=== PATIENT | female | born 1985 | race Caucasian/White ===

== ENCOUNTER 2020-05-02 21:19 | Inpatient (IN) | payer MEDICARE, MEDICAID ==
[~2020-05-02] VITALS: Ht 177.8 cm; Wt 101.9 kg
[2020-05-02] MEDS ORDERED: acetaminophen 325mg tablet PO PRN (23:50)
[2020-05-02] MEDS ORDERED: loperamide 2mg capsule PO PRN (23:50)
[2020-05-02] MEDS ORDERED: mag hydrox/Alum hydrox/simeth 30ml oral suspension PO PRN (23:50)
[2020-05-03] MEDS ORDERED: ASPI-10 PO (00:19)
[2020-05-03] MEDS ORDERED: HYDR12.55 PO (00:19)
[2020-05-03] MEDS ORDERED: [UNRECOGNIZED DRUG - CODE] PO (00:19)
[2020-05-03] MEDS ORDERED: OLAN10TA3 PO (00:19)
[2020-05-03] MEDS ORDERED: GABA600T13 PO (00:19)
[2020-05-03] MEDS ORDERED: LITH450T2 PO (00:19)
[2020-05-03] MEDS ORDERED: TRAM50TA2 PO (00:19)
[2020-05-03] MEDS: traMADol 50MG tablet PO SCH ×2 (00:55→20:18)
[2020-05-03] MEDS: gabapentin 300mg capsule PO SCH ×4 (00:55→20:19)
[2020-05-03] MEDS: lithium carbonate 450mg CR tablet PO SCH ×2 (00:55→20:18)
[2020-05-03] MEDS: olanzapine 10mg tablet PO SCH ×2 (00:55→20:18)
[2020-05-03] MEDS: NICOTINE POLACRILEX 2 MG LOZENGE BC PRN (01:27)
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
[2020-05-03 07:21] LABS: HEMOGLOBIN A1C 4.9 % (4.5-6.2)
[2020-05-03 07:30] LABS: CHOL/HDL RATIO 3.4 (0.00-4.99); CHOLESTEROL 169 MG/DL (0-200); HDL CHOLESTEROL 49 MG/DL (35-60); LDL CHOLESTEROL 93 MG/DL (50-100); TRIGLYCERIDES 125 MG/DL (20-135)
[2020-05-03] MEDS: LORazepam 1 MG tablet PO PRN (07:31)
[2020-05-03] MEDS: HYDROchlorothiazide 12.5mg capsule PO SCH (07:31)
[2020-05-03] MEDS: aspirin 325mg tablet PO SCH (07:31)
[2020-05-03] MEDS: ibuprofen 200mg tablet PO PRN (07:32)
[2020-05-03 07:43] VITALS: BP 147/81
[2020-05-03] MEDS ORDERED: tizanidine 4mg tablet PO ONE (13:10)
[2020-05-03] MEDS ORDERED: LORazepam 1 MG tablet PO ONE (13:10)
[2020-05-03] MEDS: traMADol 50MG tablet PO PRN (13:23)
[2020-05-03 16:00] VITALS: BP 121/70
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
[2020-05-04] MEDS: gabapentin 300mg capsule PO SCH ×3 (07:28→20:31)
[2020-05-04] MEDS: HYDROchlorothiazide 12.5mg capsule PO SCH (07:28)
[2020-05-04] MEDS: aspirin 325mg tablet PO SCH (07:28)
[2020-05-04 08:00] VITALS: BP 164/72
[2020-05-04] MEDS: LORazepam 1 MG tablet PO PRN ×2 (13:01→21:18)
[2020-05-04] MEDS: traMADol 50MG tablet PO PRN (13:02)
[2020-05-04] MEDS: ibuprofen 200mg tablet PO PRN ×2 (13:07→21:21)
--- NOTE | 2020-05-04 16:13 | NUR ---
[facility] Called [facility] (ph# [phone]) to inquire about discharge plan and if they are considering conservatorship. Left message requesting a call back. Was informed someone will return inspector automatic typewriter's call on Thursday. FRANCK Matias
--- NOTE | 2020-05-04 16:31 | NUR ---
Tx History from Clinical Reimbursement Specialist Blaise ([facility]) called to provide information. Ph# [phone]. Was stable on Zyprexa and Clozaril. She has stopped both meds due to side effects. She was stable for 3 years on Clozaril. She had a bad reaction to Invega in the past. He reported Nuno can be very high functioning and was working, manages her own money, has a car, does have a degree, and has lost her apartment since this hospital stay. Blaise reported Nuno cannot go to her parents house per her parents, they do not feel she is safe in the community and needs to be conserved again. FRANCK Matias
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
[2020-05-04 19:53] VITALS: BP 130/69
[2020-05-04] MEDS: lithium carbonate 450mg CR tablet PO SCH (20:32)
[2020-05-04] MEDS: olanzapine 10mg tablet PO SCH (20:32)
[2020-05-04] MEDS: traMADol 50MG tablet PO SCH (20:32)
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
[2020-05-05 08:00] VITALS: BP 128/86
[2020-05-05] MEDS: gabapentin 300mg capsule PO SCH ×3 (08:17→20:08)
[2020-05-05] MEDS: aspirin 325mg tablet PO SCH (08:17)
[2020-05-05] MEDS: HYDROchlorothiazide 12.5mg capsule PO SCH (08:18)
[2020-05-05] MEDS: traMADol 50MG tablet PO PRN ×3 (08:18→20:11)
[2020-05-05] MEDS: LORazepam 1 MG tablet PO PRN ×3 (08:32→22:48)
[2020-05-05] MEDS: tizanidine 4mg tablet PO PRN ×3 (10:40→22:48)
--- NOTE | 2020-05-05 17:01 | NUR ---
Nursing Progress Note: Legal hold: 5250 Client on voluntary/involuntary status for GD/DTS Report received from nurse with use of SBAR: FABRIZIO Greene Why are they here: [facility] she arrived on a stretcher in restraints. She sustained major multiple fractures including spinal fractures, rib fractures, manubrium, sacral, pelvic, and R femur fractures, a pneumothorax and possible right peroneal nerve palsy after attempting suicide by jumping off a freeway overpass in February. After being in the hospital and going to a rehabilitation facility she AMA'd and wheeled herself out into the middle of a road. She is NWB RLE and WBAT LLE, she is supposed to wear a right lower leg splint at night. Pt's Hx includes hypertension, lupus, schizoaffective disorder, and autism. Assessment What has happened this shift: Received pt. sleeping in bed at the beginning of the shift, she remains on LOS r/t fall precautions. Pt. was able to independently transfer to W/C and attend breakfast in the Group Room, and was compliant with physical/weight bearing limitations to her lower extremities. However, following breakfast pt. c/o increased pain in her back and rt. leg, PRN Tramadol administered with some effectiveness, but pt. continued to c/o muscle spasms. Obtained an order for Zanaflex 4mg TID, administered with effectiveness. 1:1 completed at bedside, pt. greets this instructional writer appropriately and is compliant with medications, however continues to refuse physical assessment to be completed. Pt. is guarded during mental health assessment, and denies any S/I, H/I, or A/V/DARLING, however she presents with internal preoccupation AEB distraction and hesitation in response to questions. Pt. also appears to be minimizing any depression or anxiety, and becomes tearful when questioned by this instructional writer regarding her S/A, states, "I don't want to talk about it!" PRN Ativan administered with effectiveness. Later, Tech sitting with pt. overhears her talking aloud to herself, stating, "If they keep me on a hold, I'm going to kill myself." PA Kee notified and will continue to monitor. At approximately 1630, pt. presented with 5250 hold by staff. She becomes agitated and becomes verbally abusive towards staff, yells out, "Fuck you all! You're holding me here against my rights!" Pt. refused to have 5250 read to her or to sign it. She then began yelling down the hallway demanding to know when her hearing would be. Staff educated her that it would be on Thursday and pt. reported understanding. PRN Ativan and Zanaflex administered upon request and pt. was able to be redirected. S/I, H/I: Denies A/VH: Denies, however presents with internal preoccupation AEB distraction and hesitation in response to questions Sleep: Sleep hours are 4.5, pt. naps intermittently throughout the shift ADL's: Pt. is on LOS for fall precautions and uses a FWW and W/C, she continues to be NWB to RLE and WBAT to LLE Group attendance: No Were meds taken: Yes Any med S/E: None Mental Status Exam Appearance: Hair disheveled r/t laying in bed, however appropriately dressed Eye contact: Fair Behavior: Cooperative/RTC, fatigued, anxious, guarded, withdrawn, and agitated/tearful at times Speech: WNL, becomes loud and intense when agitated Mood: Guarded and appears depressed Affect: Labile Thought process: Poverty of thought with possible A/V/DARLING Thought Content: Preoccupation with desire to discharge and delusion that she is being held here illegally Cognition: A&O X 3 (not to why here) Insight: Poor Judgment: Poor Interventions PRN's used: Ultram X2, Flexeril X2, and Ativan Therapeutic interventions: Introduced self and established rapport, maintained a safe and supportive environment, ensured contract for safety, provided clear and simple instructions, encouraged compliance with physical/weight bearing limitations, maintained LOS r/t fall precautions, and monitored behavior and need for intervention. Restraints/seclusion/emergency medication: N/A Justification of Continued Inpatient Treatment: Pt. requires interruption of current crisis, medication adjustments, and a safe and supportive environment.
[2020-05-05 20:00] VITALS: BP 117/70
[2020-05-05] MEDS: olanzapine 10mg tablet PO SCH (20:07)
[2020-05-05] MEDS: traZODone 50mg tablet PO PRN ×2 (20:08→21:03)
[2020-05-05] MEDS: lithium carbonate 450mg CR tablet PO SCH (20:08)
[2020-05-05] MEDS: ibuprofen 200mg tablet PO PRN (20:10)
--- NOTE | 2020-05-06 01:34 | NUR ---
Nursing Progress Note: Legal hold: 5250 Client on involuntary status for GD/DTS. Report received from nurse Jef EID with use of SBAR. Why are they here: [facility] she arrived on a stretcher in restraints on 05/02/20 at 2320. 2 RN skin check and completed, pictures in chart. She sustained major multiple fractures including spinal fractures, rib fractures, manubrum, sacral, pelvic, and R femur fractures, a pneumothorax and possible right peroneal nerve palsy after attempting suicide by jumping off a freeway overpass in February. After being in the hospital and going to a rehabilitation facility she AMA'd and wheeled herself out into the middle of a road. She is NWB RLE and WBAT LLE, she is supposed to wear a right lower leg splint at night. Pt's Hx includes hypertension, lupus, schizoaffective disorder, and autism. Assessment What has happened this shift: Pt isolated to room for entire shift. She remains on LOS due to injuries; staff reinforce non-weight bearing orders and transfer assistance; pt is resistive and angry to this oversight but is compliant with orders. Pt is medication compliant, but asks for more pain medication (various types) as she is still experiencing pain with current prescriptions. Her Tramadol was increased to 100mg and Zanaflex was added to her regimen this evening. She is initially polite when approached, but becomes agitated and remains labile when needs are not immediately met when she demands them. She is verbally abusive to staff, often yelling obscenities like "dipshits". Pt is cooperative with vitals but refuses both the mental and physical assessments, yelling at this RN to "get out of my room!" unless administering medications or bringing pt a snack. Pt continues to minimize the actions leading up to her admission, stating she does not need to be here, it is illegal, and she was admitted by accident. S/I, H/I: Refuses to answer A/VH: Refuses to answer Sleep: see sleep assessment ADL's: Pt resistive to assistance but compliant with weight bearing orders Group attendance: N/A Were meds taken: Yes Any med S/E: None noted nor reported Mental Status Exam Appearance: Disheveled in personal clothing and unit pants and nonskid socks. Pt needs a shower. Eye contact: Poor Behavior: Demanding, accusatory, hostile and verbally abusive to staff, noncompliant with asking/waiting for assistance and weight bearing status, isolates to room Speech: Clear, loud Mood: Labile, pt presents as primarily agitated Affect: Blunted Thought process: Perseverative Thought Content: Wants to be left alone, wants more meds, wants to be discharged Cognition: A/Ox3, off for circumstance Insight: Poor Judgment: Poor Interventions PRN's used: Motrin 600 mg, Trazodone 100mg, Ativan 1mg, Zanaflex 4mg Therapeutic interventions: 1:1 assessment, attempted to establish rapport, therapeutic communication, active listening, medication administration/education/monitoring, behavior monitoring and intervention as needed; reality orientation, limit setting, redirection, verbal de-escalation, further fall preventions, line of sight level of observation. Restraints/seclusion/emergency medication: N/A Justification of Continued Inpatient Treatment: Pt is s/p a very serious suicide attempt resulting in major injury with several fractures, she is verbally aggressive and noncompliant with care, she needs medication adjustment and monitoring in a safe and therapeutic environment until stable. Pt remains GD and DTS.
[2020-05-06] MEDS: tizanidine 4mg tablet PO PRN ×3 (07:46→23:26)
[2020-05-06] MEDS: traMADol 50MG tablet PO PRN (07:47)
[2020-05-06] MEDS: gabapentin 300mg capsule PO SCH ×3 (07:48→20:00)
[2020-05-06] MEDS: HYDROchlorothiazide 12.5mg capsule PO SCH (07:48)
[2020-05-06] MEDS: LORazepam 1 MG tablet PO PRN ×3 (07:48→23:26)
[2020-05-06] MEDS: aspirin 325mg tablet PO SCH (07:48)
[2020-05-06 08:00] VITALS: BP 111/62
[2020-05-06] MEDS: ibuprofen 200mg tablet PO PRN ×2 (09:12→20:00)
[2020-05-06] MEDS: ondansetron 4mg rapidly disintigrating tab PO PRN (09:13)
[2020-05-06] MEDS: magnesium hydroxide 30ml (MOM) UD suspension PO PRN (09:56)
[2020-05-06] MEDS: HYDROcodone/acetaminophen 10/325mg tab PO PRN ×2 (13:10→20:02)
--- NOTE | 2020-05-06 17:51 | NUR ---
Nursing Progress Note: Legal hold: 5250 Client on voluntary/involuntary status for GD/DTS Report received from nurse with use of SBAR: FABRIZIO Greene Why are they here: [facility] she arrived on a stretcher in restraints. She sustained major multiple fractures including spinal fractures, rib fractures, manubrium, sacral, pelvic, and R femur fractures, a pneumothorax and possible right peroneal nerve palsy after attempting suicide by jumping off a freeway overpass in February. After being in the hospital and going to a rehabilitation facility she AMA'd and wheeled herself out into the middle of a road. She is NWB RLE and WBAT LLE, she is supposed to wear a right lower leg splint at night. Pt's Hx includes hypertension, lupus, schizoaffective disorder, and autism. Assessment What has happened this shift: Patient was asleep at change of shift and up for breakfast. Patient was pleasant most of the day. Patient has a lot of pain and AARON Rojas changed her Tramadol to [place] 10/ Q 6 hours PRN. Patient stated it worked better than the Tramadol. Patient denies suicidal/homicidal ideation. Patient states she is depressed because she is here and because she is debilitated with pain. Patient talks to herself and appears to be responding to internal stimuli most of her waking hours. RN asked patient is she hears voices. Patient thought for about 10 seconds and then says no. RN asked "are you sure because you had to think about it for a while before you answered. Patient again said no she doesn't hear voices. Bob believes patient is afraid of getting conserved. Patient allowed to stay in her room. She is more agreeable and less agitated. Patient able to get up and go to BR but used the walker and not the wheelchair. In early evening the sitter was telling her to sit up a little bit because she was going to bring her her dinner. Patient got upset and stated "don't talk to me or tell me what to do. You are not a nurse." Patient eventually calmed down. S/I, H/I: Denies A/VH: Denies, but appears to be responding to internal stimuli. Sleep: Several naps throughout the day. ADL's: Pt. is on LOS for fall precautions and uses a FWW and W/C, she continues to be NWB to RLE. Group attendance: No Were meds taken: Yes Any med S/E: None Mental Status Exam Appearance: Hair disheveled r/t laying in bed, however appropriately dressed Eye contact: Good Behavior: Cooperative and agitated at times. Speech: Normal rate and rhythm Mood: Guarded and appears depressed Affect: Labile Thought process: Poverty of thought with possible A/V/DARLING Thought Content: Preoccupation with desire to discharge and delusion that she is being held here illegally Cognition: A&O X 3 (not to why here) Insight: Poor Judgment: Poor Interventions PRN's used: Ultram x 1, [place] x 1, Ativan x 2, Zanaflex x 2, Therapeutic interventions: Introduced self and established rapport, maintained a safe and supportive environment, ensured contract for safety, provided clear and simple instructions, encouraged compliance with physical/weight bearing limitations, maintained LOS r/t fall precautions, and monitored behavior and need for intervention. Restraints/seclusion/emergency medication: N/A Justification of Continued Inpatient Treatment: Pt. requires interruption of current crisis, medication adjustments, and a safe and supportive environment.
[2020-05-06 20:00] VITALS: BP 122/70
[2020-05-06] MEDS: lithium carbonate 450mg CR tablet PO SCH (20:00)
[2020-05-06] MEDS: docusate sod 100mg capsule PO SCH (20:00)
[2020-05-06] MEDS: traZODone 50mg tablet PO PRN (20:01)
[2020-05-06] MEDS: olanzapine 10mg tablet PO SCH (20:02)
[2020-05-06 22:06] VITALS: BP 122/70
--- NOTE | 2020-05-07 02:15 | NUR ---
Nursing Progress Note: Legal hold: 5250 Client on involuntary status for GD/DTS. Report received from nurse Jef EID with use of SBAR. Why are they here: [facility] she arrived on a stretcher in restraints on 05/02/20 at 2320. 2 RN skin check and completed, pictures in chart. She sustained major multiple fractures including spinal fractures, rib fractures, manubrum, sacral, pelvic, and R femur fractures, a pneumothorax and possible right peroneal nerve palsy after attempting suicide by jumping off a freeway overpass in February. After being in the hospital and going to a rehabilitation facility she AMA'd and wheeled herself out into the middle of a road. She is NWB RLE and WBAT LLE, she is supposed to wear a right lower leg splint at night. Pt's Hx includes hypertension, lupus, schizoaffective disorder, and autism. Assessment What has happened this shift: Pt isolated to room for entire shift. She remains on LOS due to injuries; staff reinforce non-weight bearing orders and transfer assistance; pt is resistive and angry to this oversight but is compliant with orders. Pt is medication compliant, and happy with [place] as it is providing better relief, but continues to request "Tenex for the pain, too. It should be in there." This RN explains to pt she will need to discuss with the MD as there is not a current order. Pt is calmer and does not get angry in response to this statement. No yelling outbursts this evening. Pt states she is bored and would enjoy Sodoku; this RN printed patient some puzzles to work on. Pt is cooperative with vitals but continues to refuse most of the mental and physical assessments. She promptly tells this RN to "go away" once the conversation steers in a direction she does not want to discuss. Pt continues to minimize the actions leading up to her admission, stating she does not need to be here. S/I, H/I: Denies A/VH: Denies Sleep: see sleep assessment ADL's: Pt resistive to assistance but compliant with weight bearing orders Group attendance: N/A Were meds taken: Yes Any med S/E: None noted nor reported Mental Status Exam Appearance: Disheveled in personal clothing and unit pants and nonskid socks. Pt needs a shower. Eye contact: Poor Behavior: isolated to room, noncompliant with asking/waiting for assistance and weight bearing status, isolates to room Speech: Clear, loud Mood: Labile Affect: Blunted Thought process: Perseverative Thought Content: Wants to be left alone, wants tenex, wants to be discharged Cognition: A/Ox3, off for circumstance Insight: Poor Judgment: Poor Interventions PRN's used: Motrin 600 mg, Trazodone 100mg, Ativan 1mg, Zanaflex 4mg, [place] 10mg Therapeutic interventions: 1:1 assessment, attempted to establish rapport, therapeutic communication, active listening, medication administration/education/monitoring, behavior monitoring and intervention as needed; reality orientation, limit setting, redirection, verbal de-escalation, further fall preventions, line of sight level of observation. Restraints/seclusion/emergency medication: N/A Justification of Continued Inpatient Treatment: Pt is s/p a very serious suicide attempt resulting in major injury with several fractures, she is verbally aggressive and noncompliant with care, she needs medication adjustment and monitoring in a safe and therapeutic environment until stable. Pt remains GD and DTS.
[2020-05-07] MEDS: gabapentin 300mg capsule PO SCH ×3 (07:22→20:07)
[2020-05-07] MEDS: aspirin 325mg tablet PO SCH (07:22)
[2020-05-07] MEDS: OLANZAPINE 5 MG TABLET PO SCH (07:22)
[2020-05-07] MEDS: docusate sod 100mg capsule PO SCH ×2 (07:22→20:06)
[2020-05-07] MEDS: HYDROchlorothiazide 12.5mg capsule PO SCH (07:22)
[2020-05-07] MEDS: HYDROcodone/acetaminophen 10/325mg tab PO PRN ×3 (07:23→21:55)
[2020-05-07 08:00] VITALS: BP 134/91
[2020-05-07] MEDS: tizanidine 4mg tablet PO PRN ×2 (09:02→15:19)
[2020-05-07] MEDS: LORazepam 1 MG tablet PO PRN ×3 (09:02→21:55)
--- NOTE | 2020-05-07 15:17 | NUR ---
Spoke to [facility] regarding d/c plan. She had Nuno's case management manager, Blaise ([phone]# [phone]), call securities underwriter. He reported while at [facility], Nuno had mentioned she did not like it there and wanted to go to a rehab in [place]. Blaise suggested [facility] as another option upon d/c. Informed him that given her current medical issues she likely would not be able to go to [facility] and he agreed. FRANCK Matias
[2020-05-07] MEDS: ibuprofen 200mg tablet PO PRN (15:32)
[2020-05-07] MEDS: acetaminophen 325mg tablet PO PRN (15:34)
--- NOTE | 2020-05-07 15:51 | NUR ---
DISCHARGE PLANNING Nuno reported she wants out of here. She reported she plans on going [facility]. Informed Nuno that she cannot go to [facility] in her current medical state (wheelchair). She reported she had spoken to [facility] and she can go there and called rewriter a liar.Called [facility] and they confirmed that Nuno needs to be ambulatory to be able to go to [facility]. Spoke to her correctional case manager, Blaise, again and he stated Nuno is likely delusional and should not be relied upon to make her own discharge plans at this time. FRANCK Matias
--- NOTE | 2020-05-07 16:12 | NUR ---
Ortho information: Contacted and left message for Shanika Steen NP. We have the information she requested for weight bearing in her chart highlighted and pt has a brace in her locker. This should be the information needed to start physical therapy.
--- NOTE | 2020-05-07 17:12 | NUR ---
Initial: Pt admit on 5150 DX schizophrenia and SI hx homeless w/ R leg non-weight bearing and CVA per EMR. A1C 4.9 and pt placed on carb controlled diet PO 75-100% avg meals. GURINDER d/w RN regarding liberalization to regular diet given A1C and no hx DM. LBM 05/05. No nutrition concerns at this time. Rec: 1. liberalize to regular diet 2. routine bowel care 3. wt per rx Addendum: 05/07/20 at [address] Amended: Links added.
--- NOTE | 2020-05-07 17:37 | NUR ---
Nursing Progress Note: Legal hold: 5250 Client on voluntary/involuntary status for GD/DTS Report received from nurse with use of SBAR: FARBIZIO Liz Why are they here: Pt was a direct admit from [facility] she arrived on a stretcher in restraints. She sustained major multiple fractures including spinal fractures, rib fractures, manubrium, sacral, pelvic, and R femur fractures, a pneumothorax and possible right peroneal nerve palsy after attempting suicide by jumping off a freeway overpass in February. After being in the hospital and going to a rehabilitation facility she AMA'd and wheeled herself out into the middle of a road. She is NWB RLE and WBAT LLE, she is supposed to wear a right lower leg splint at night. Pt's Hx includes hypertension, lupus, schizoaffective disorder, and autism. Assessment What has happened this shift: Received pt. sleeping in bed at the beginning of the shift, she remains on LOS r/t fall precautions. Pt. was again able to independently transfer to W/C and attend breakfast in the Group Room, and remains compliant with physical/weight bearing limitations to her lower extremities. 1:1 completed at bedside, pt. greets this race and sports book writer appropriately and is compliant with medications and physical assessment. She remains guarded and continues to deny all MH s/s, however presents with internal preoccupation AEB distraction, hesitation in response to questions, and is observed to be talking aloud to herself throughout the shift. Pt. makes frequent delusional statements during the shift, states, "The finishing and shipping supervisor that brought me here were jerks, they were supposed to take me to [facility]. I am supposed to be on a medical floor." Pt. does request PRN Ativan for anxiety X2 during the shift, administered with effectiveness. Later in the afternoon after her court hearing which she walked out on, pt. wheeled herself to the nurse's station and began to verbally abuse the CRN. Pt. yells out, "He is the fucking asshole who is keeping me here illegally! I recognize him, I knew him before I came here!" Pt. was unable to be redirected by staff and had to be escorted back to her room. There she proceeded to stare out the window and talk aloud to herself. Pt. continue to report pain in lower right leg, PRN [place] and Zanaflex provided with effectiveness. S/I, H/I: Denies A/VH: Denies, however presents with internal preoccupation AEB distraction, hesitation in response to questions, and is observed to be talking aloud to herself Sleep: Sleep hours are 8.5, pt. naps intermittently throughout the shift ADL's: Pt. is on LOS for fall precautions and uses a FWW and W/C, she continues to be NWB to RLE and WBAT to LLE Group attendance: No Were meds taken: Yes Any med S/E: None Mental Status Exam Appearance: Hair disheveled r/t laying in bed, however appropriately dressed Eye contact: Fair Behavior: Cooperative, fatigued, restless, agitated at times, guarded, and withdrawn Speech: WNL, becomes loud and intense when agitated Mood: Guarded, restless, and agitated at times Affect: Labile Thought process: Poverty of thought with some disorganization Thought Content: Preoccupation with desire to discharge and delusion that she is being held here illegally, also ongoing internal preoccupation Cognition: A&O X 3 (not to why here) Insight: Poor Judgment: Poor Interventions PRN's used: [place] X2, Flexeril X2, and Ativan Therapeutic interventions: Maintained a safe and supportive environment, ensured contract for safety, provided clear and simple instructions, encouraged compliance with physical/weight bearing limitations, maintained LOS r/t fall precautions, provided redirection as needed, and monitored behavior and need for intervention. Restraints/seclusion/emergency medication: N/A Justification of Continued Inpatient Treatment: Pt. requires interruption of current crisis, medication adjustments, and a safe and supportive environment. Addendum: 05/07/20 at 1802 by Shefali Paul RN Pt's diet changed back to regular per recommendation from dietary, HBA1C is 4.9
[2020-05-07] MEDS: ondansetron 4mg rapidly disintigrating tab PO PRN (19:20)
[2020-05-07 19:49] VITALS: BP 126/54
[2020-05-07] MEDS: lithium carbonate 450mg CR tablet PO SCH (20:06)
[2020-05-07] MEDS: traZODone 50mg tablet PO PRN ×2 (20:06→21:55)
[2020-05-07] MEDS: olanzapine 10mg tablet PO SCH (20:06)
--- NOTE | 2020-05-08 01:58 | NUR ---
Nursing Progress Note: Legal hold: 5250 Client on voluntary/involuntary status for GD/DTS Report received from nurse with use of SBAR: Jef DINH Why are they here: [facility] she arrived on a stretcher in restraints. She sustained major multiple fractures including spinal fractures, rib fractures, manubrium, sacral, pelvic, and R femur fractures, a pneumothorax and possible right peroneal nerve palsy after attempting suicide by jumping off a freeway overpass in February. After being in the hospital and going to a rehabilitation facility she AMA'd and wheeled herself out into the middle of a road. She is NWB RLE and WBAT LLE, she is supposed to wear a right lower leg splint at night. Pt's Hx includes hypertension, lupus, schizoaffective disorder, and autism. Assessment What has happened this shift: Pt in bed at the beginning of the shift, she remains on LOS r/t fall precautions. Pt immediately at shift change requested all her PRNs but it was too soon. Given [place] Trazodone and Ativan at HS. Pt denied A/VH but often yells out in what appears to be responses to internal stimuli. Her behavior rapidly changes from impatient and at times verbally abusive to verbalizing gratitude for care. Pt says it is illegal for her to be held here that she needs to be released. When questioned about where she will go at discharge pt says she has several places she could go but declines to elaborate. Pt declined to come to Group room for snack. S/I, H/I: Denies A/VH: Denies, however presents with internal preoccupation AEB distraction, hesitation in response to questions, and is observed to be talking aloud to herself Sleep: Sleep hours are 8.5, pt. naps intermittently throughout the shift ADL's: Pt. is on LOS for fall precautions and uses a FWW and W/C, she continues to be NWB to RLE and WBAT to LLE Group attendance: No Were meds taken: Yes Any med S/E: None Mental Status Exam Appearance: appropriately dressed Eye contact: Fair Behavior: Agitated at times, guarded, and withdrawn Cooperative with medications Speech: WNL, yells out at times Mood: Guarded, restless, and agitated at times Affect: Labile Thought process: Poverty of thought with some disorganization Thought Content: Preoccupation with desire to discharge and delusion that she is being held here illegally, also ongoing internal preoccupation Cognition: A&O X 3 (not to why here) Insight: Poor Judgment: Poor Interventions PRN's used: [place] Trazodone and Ativan Therapeutic interventions: Maintained a safe and supportive environment, ensured contract for safety, provided clear and simple instructions, encouraged compliance with physical/weight bearing limitations, maintained LOS r/t fall precautions, provided redirection as needed, and monitored behavior and need for intervention. Restraints/seclusion/emergency medication: N/A Justification of Continued Inpatient Treatment: Pt. requires interruption of current crisis, medication adjustments, and a safe and supportive environment.
[2020-05-08] MEDS: LORazepam 1 MG tablet PO PRN ×3 (06:45→20:26)
[2020-05-08] MEDS: HYDROcodone/acetaminophen 10/325mg tab PO PRN ×3 (06:47→20:34)
[2020-05-08 07:00] VITALS: BP 133/73
[2020-05-08] MEDS: HYDROchlorothiazide 12.5mg capsule PO SCH (08:18)
[2020-05-08] MEDS: aspirin 325mg tablet PO SCH (08:18)
[2020-05-08] MEDS: docusate sod 100mg capsule PO SCH ×2 (08:18→20:26)
[2020-05-08] MEDS: OLANZAPINE 5 MG TABLET PO SCH (08:18)
[2020-05-08] MEDS: tizanidine 4mg tablet PO PRN ×3 (08:18→22:17)
[2020-05-08] MEDS: gabapentin 300mg capsule PO SCH ×3 (08:19→20:26)
[2020-05-08] MEDS: ibuprofen 200mg tablet PO PRN ×2 (12:02→17:25)
[2020-05-08] MEDS: ondansetron 4mg rapidly disintigrating tab PO PRN (17:28)
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
[2020-05-08] MEDS: traZODone 50mg tablet PO PRN (20:25)
[2020-05-08] MEDS: olanzapine 10mg tablet PO SCH (20:25)
[2020-05-08] MEDS: lithium carbonate 450mg CR tablet PO SCH (20:25)
[2020-05-08] MEDS: acetaminophen 325mg tablet PO PRN (22:22)
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
[2020-05-09] MEDS: tizanidine 4mg tablet PO PRN ×3 (04:02→19:00)
[2020-05-09] MEDS: LORazepam 1 MG tablet PO PRN ×2 (04:02→19:00)
[2020-05-09] MEDS: HYDROcodone/acetaminophen 10/325mg tab PO PRN ×3 (04:09→19:00)
[2020-05-09 08:00] VITALS: BP 113/51
[2020-05-09] MEDS: gabapentin 300mg capsule PO SCH ×3 (08:23→20:11)
[2020-05-09] MEDS: ibuprofen 200mg tablet PO PRN (08:23)
[2020-05-09] MEDS: OLANZAPINE 5 MG TABLET PO SCH (08:23)
[2020-05-09] MEDS: HYDROchlorothiazide 12.5mg capsule PO SCH (08:24)
[2020-05-09] MEDS: aspirin 325mg tablet PO SCH (08:24)
[2020-05-09] MEDS: acetaminophen 325mg tablet PO PRN (08:24)
[2020-05-09] MEDS: docusate sod 100mg capsule PO SCH ×2 (08:24→19:02)
--- NOTE | 2020-05-09 13:11 | NUR ---
RN note with collaboration with PT: Patient cussing and crying because she wants to leave. P.T., Gerald came to see patient. Patient was immediately calm when PT came to see her. When they told her she cannot use the walker because she is not supposed to bear weight patient got angry and cussing. Patient would not listen to PT. RN took patient's walker away because instead of using it to help herself up, she was walking to the BR with it. RN advised patient that when she needs to go to the bathroom she will need to ask for help and we will assist her into her w/c. Patient screaming at RN and telling RN that "your are fucking too fat to help me! I'll just pee in my bed and you can fucking clean me up. You are such an fucking idiot!" RN spoke to PT on the phone again and clarified order. Patient to pivot to w/c to go to BR. Patient also needs to use the brace at night and patient possibly has some nerve damage.
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
[2020-05-09 19:50] VITALS: BP 146/65
[2020-05-09] MEDS: olanzapine 10mg tablet PO SCH (20:11)
[2020-05-09] MEDS: traZODone 50mg tablet PO PRN ×2 (20:12→20:57)
[2020-05-09] MEDS: lithium carbonate 450mg CR tablet PO SCH (20:12)
[2020-05-09] MEDS: ondansetron 4mg rapidly disintigrating tab PO PRN (22:24)
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
[2020-05-10] MEDS: HYDROcodone/acetaminophen 10/325mg tab PO PRN ×3 (05:40→19:26)
[2020-05-10] MEDS: tizanidine 4mg tablet PO PRN ×2 (05:41→12:59)
[2020-05-10] MEDS: LORazepam 1 MG tablet PO PRN ×2 (05:41→16:29)
[2020-05-10 07:42] VITALS: BP 130/73
[2020-05-10] MEDS: docusate sod 100mg capsule PO SCH ×2 (08:27→20:16)
[2020-05-10] MEDS: HYDROchlorothiazide 12.5mg capsule PO SCH (08:28)
[2020-05-10] MEDS: gabapentin 300mg capsule PO SCH ×3 (08:28→20:16)
[2020-05-10] MEDS: aspirin 325mg tablet PO SCH (08:29)
[2020-05-10] MEDS: ibuprofen 200mg tablet PO PRN ×2 (08:29→16:31)
[2020-05-10] MEDS: OLANZAPINE 5 MG TABLET PO SCH (08:29)
[2020-05-10] MEDS: acetaminophen 325mg tablet PO PRN ×2 (08:31→16:31)
[2020-05-10] MEDS: LIDOcaine 5% patch TP SCH (10:52)
--- NOTE | 2020-05-10 16:01 | NUR ---
Nuno's step-mom, Lorena ([phone]# [phone]), called to see how Nuno is doing. She reported she spoke with Nuno and she did not sound well. Answered her questions regarding the program here. She reported she does not think Nuno can return to [facility] as she was not very cooperative there. Called Nuno's casework supervisor, Blaise, and requested he fax records regarding what medications and doses have been helpful in the past. He reported he will fax them tomorrow. FRANCK Matias
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
[2020-05-10 20:00] VITALS: BP 160/51
[2020-05-10] MEDS: olanzapine 10mg tablet PO SCH (20:16)
[2020-05-10] MEDS: lithium carbonate 450mg CR tablet PO SCH (20:16)
[2020-05-11] MEDS: tizanidine 4mg tablet PO PRN (01:56)
[2020-05-11] MEDS: HYDROcodone/acetaminophen 10/325mg tab PO PRN ×4 (01:56→20:28)
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
[2020-05-11 07:34] VITALS: BP 163/89
[2020-05-11] MEDS: docusate sod 100mg capsule PO SCH ×2 (08:00→20:29)
[2020-05-11] MEDS: aspirin 325mg tablet PO SCH (08:30)
[2020-05-11] MEDS: LIDOcaine 5% patch TP SCH (09:36)
[2020-05-11] MEDS: gabapentin 300mg capsule PO SCH ×3 (09:37→22:23)
[2020-05-11] MEDS: HYDROchlorothiazide 12.5mg capsule PO SCH (09:37)
[2020-05-11] MEDS: LORazepam 1 MG tablet PO PRN ×2 (09:37→15:53)
[2020-05-11] MEDS: OLANZAPINE 5 MG TABLET PO SCH (09:37)
--- NOTE | 2020-05-11 13:38 | NUR ---
VALENTIN FOR [facility] Nuno signed VALENTIN for [facility]. Faxed it back and requested records. FRANCK Matias
[2020-05-11] MEDS: ondansetron 4mg rapidly disintigrating tab PO PRN (15:53)
[2020-05-11] MEDS: ibuprofen 200mg tablet PO PRN (15:53)
[2020-05-11] MEDS: NICOTINE POLACRILEX 2 MG LOZENGE BC PRN ×2 (15:54→22:26)
[2020-05-11] MEDS ORDERED: sennosides/docusate sodium tablet PO PRN (16:00)
--- NOTE | 2020-05-11 16:42 | NUR ---
Nursing Progress Note: Legal hold: 5250 Client on involuntary status for GD/DTS Report received from nurse with use of SBAR: RGAINI Fuchs, CRN Why are they here: [facility] she arrived on a stretcher in restraints. She sustained major multiple fractures including spinal fractures, rib fractures, manubrium, sacral, pelvic, and R femur fractures, a pneumothorax and possible right peroneal nerve palsy after attempting suicide by jumping off a freeway overpass in February. After being in the hospital and going to a rehabilitation facility she AMA'd and wheeled herself out into the middle of a road. She is NWB RLE and WBAT LLE, she is supposed to wear a right lower leg splint at night. Pt's Hx includes hypertension, lupus, schizoaffective disorder, and autism. Assessment What has happened this shift: Patient was asleep at change of shift and awake at breakfast. She did not yell as much today as she has in the past. She was observed numerous times sitting on the side of her bed facing her bedroom windows, with no one in the room, having a conversation at times yelling at whom she was talking too. She continues to inquire about her discharge plan. S/I, H/I: Denies A/VH: Patient appears to be responding to internal stimuli. Sleep: Several naps today. ADL's: Pt. is on LOS for fall precautions and uses a FWW and W/C, she continues to be NWB to RLE and WBAT to LLE. Patient ambulates to restroom and back to bed. Group attendance: No Were meds taken: Yes Any med S/E: None Mental Status Exam Appearance: Patient wearing personal clothing; her hair is brushed and styled Eye contact: Good Behavior: Labile Speech: Pressured Mood: Some agitation in the later afternoon Affect: appears frustrated and depressed Thought process: Poverty of thought, disorganized, thought blocking. Thought Content: Preoccupation with desire to discharge and delusion that she is being held here illegally,. Cognition: A&O X 3 (not to why here) Insight: Poor Judgment: Poor Interventions PRN's used: Zanaflex X1, Tylenol and Motrin x 1, Ativn 2mg x 1 Therapeutic interventions: Provided AM assessment with therapeutic communication and active listening, maintained a safe and supportive environment, medication administration/education/monitoring, limitations, maintained LOS r/t fall precautions, provided redirection as needed, and monitored behavior and need for intervention. Restraints/seclusion/emergency medication: N/A Justification of Continued Inpatient Treatment: Pt. requires interruption of current crisis, medication adjustments, and a safe and supportive environment.
--- NOTE | 2020-05-11 18:31 | NUR ---
Received report from charge nurse.
[2020-05-11 19:47] VITALS: BP 134/75
[2020-05-11] MEDS: guanFACINE 1 mg tablet PO SCH (20:27)
[2020-05-11] MEDS: olanzapine 10mg tablet PO SCH (20:27)
[2020-05-11] MEDS: lithium carbonate 150mg capsule PO SCH (20:29)
[2020-05-12] MEDS: traZODone 50mg tablet PO PRN ×3 (00:45→20:18)
--- NOTE | 2020-05-12 02:34 | NUR ---
Nursing Progress Note: Legal hold: 5250 Client on involuntary status for GD/DTS Report received from nurse with use of SBAR: RAGINI Pickens Why are they here: Pt was a direct admit from [facility] she arrived on a stretcher in restraints. She sustained major multiple fractures including spinal fractures, rib fractures, manubrium, sacral, pelvic, and R femur fractures, a pneumothorax and possible right peroneal nerve palsy after attempting suicide by jumping off a freeway overpass in February. After being in the hospital and going to a rehabilitation facility she AMA'd and wheeled herself out into the middle of a road. She is NWB RLE and WBAT LLE, she is supposed to wear a right lower leg splint at night. Pt's Hx includes hypertension, lupus, schizoaffective disorder, and autism. Assessment What has happened this shift: Patient was asleep most of shift. She did yell out for pain medication but was polite and calm when they were brought in to her. Patient requesed snack throughout the night. Assesment was done a long with med pass and she was compliant with both. Patient did tell me that she wants to go home and when I told her that we needed to make sure that she was safe she mentioned that she thinks there are more reasons than that. S/I, H/I: Denies A/VH: Denies Sleep: Most of shift, ADL's: Pt. is on LOS for fall precautions and uses a FWW and W/C, she continues to be NWB to RLE and WBAT to LLE. Patient ambulates to restroom and back to bed. Group attendance: N/A Were meds taken: Yes Any med S/E: None Mental Status Exam Appearance: Patient wearing personal clothing; needs shower Eye contact: Good Behavior: Labile Speech: Pressured Mood: slightly agitated Affect: appears frustrated and depressed Thought process: Poverty of thought, disorganized, thought blocking, paranoid Thought Content: Preoccupation with desire to discharge Cognition: A&O X 3 (not to why here) Insight: Poor Judgment: Poor Interventions PRN's used: Trazodone, [place] Therapeutic interventions: Provided PM assessment with therapeutic communication and active listening, maintained a safe and supportive environment, medication administration/education/monitoring, limitations, maintained LOS r/t fall precautions, provided redirection as needed, and monitored behavior and need for intervention. Restraints/seclusion/emergency medication: N/A Justification of Continued Inpatient Treatment: Pt. requires interruption of current crisis, medication adjustments, and a safe and supportive environment.
[2020-05-12] MEDS: NICOTINE POLACRILEX 2 MG LOZENGE BC PRN ×4 (05:51→20:06)
[2020-05-12] MEDS: HYDROcodone/acetaminophen 10/325mg tab PO PRN (05:52)
[2020-05-12] MEDS: LORazepam 1 MG tablet PO PRN ×2 (05:52→16:25)
[2020-05-12] MEDS: magnesium hydroxide 30ml (MOM) UD suspension PO PRN ×2 (05:55→16:25)
[2020-05-12 07:33] VITALS: BP 102/58
[2020-05-12] MEDS: LIDOcaine 5% patch TP SCH (07:45)
[2020-05-12] MEDS: guanFACINE 1 mg tablet PO SCH ×2 (07:46→20:05)
[2020-05-12] MEDS: OLANZAPINE 5 MG TABLET PO SCH ×2 (07:46→21:00)
[2020-05-12] MEDS: aspirin 325mg tablet PO SCH (07:46)
[2020-05-12] MEDS: docusate sod 100mg capsule PO SCH ×2 (07:46→20:05)
[2020-05-12] MEDS: gabapentin 300mg capsule PO SCH ×3 (07:47→20:05)
--- NOTE | 2020-05-12 16:07 | NUR ---
Nursing Progress Note: Legal hold: 5250 Client on involuntary status for GD/DTS Report received from nurse with use of SBAR: RAGINI Fuchs, CRN Why are they here: [facility] she arrived on a stretcher in restraints. She sustained major multiple fractures including spinal fractures, rib fractures, manubrium, sacral, pelvic, and R femur fractures, a pneumothorax and possible right peroneal nerve palsy after attempting suicide by jumping off a freeway overpass in February. After being in the hospital and going to a rehabilitation facility she AMA'd and wheeled herself out into the middle of a road. She is NWB RLE and WBAT LLE, she is supposed to wear a right lower leg splint at night. Pt's Hx includes hypertension, lupus, schizoaffective disorder, and autism. Assessment What has happened this shift: Patient sleeping at change of shift then awake for breakfast. Again pt is observed sitting on the side of her bed having a conversation at times yelling out talking as if someone is in the room. Pt is tearful intermittently expressing her desire to return to "my facility, where I live." She slept on and off today. S/I, H/I: Denies A/VH: Patient appears to be responding to internal stimuli. Sleep: Several naps today. ADL's: Pt. is on LOS for fall precautions and uses a FWW and W/C. Group attendance: No Were Meds taken: Yes Any med S/E: None Mental Status Exam Appearance: Patient wearing personal clothing; her hair is brushed and styled Eye contact: Good Behavior: Labile Speech: Pressured Mood: Some agitation in the later afternoon Affect: frustrated and depressed Thought process: disorganized Thought Content: Preoccupation with desire to discharge and delusion that she is being held here illegally,. Cognition: A&O X 3 (not to why here) Insight: Poor Judgment: Poor Interventions PRN's used: N/A Therapeutic interventions: Provided AM assessment with therapeutic communication and active listening, maintained a safe and supportive environment, medication administration/education/monitoring, limitations, maintained LOS r/t fall precautions, provided redirection as needed, and monitored behavior and need for intervention. Restraints/seclusion/emergency medication: N/A Justification of Continued Inpatient Treatment: Pt. requires interruption of current crisis, medication adjustments, and a safe and supportive environment.
[2020-05-12] MEDS: ibuprofen 200mg tablet PO PRN (16:25)
[2020-05-12 19:00] VITALS: BP 148/88
[2020-05-12] MEDS: lithium carbonate 150mg capsule PO SCH (20:05)
[2020-05-12] MEDS: olanzapine 10mg tablet PO SCH (20:05)
[2020-05-12] MEDS: sennosides 8.6mg tablet PO PRN (20:05)
[2020-05-12] MEDS: HYDROcodone/acetaminophen 5mg/325mg tablet PO PRN (20:06)
[2020-05-12] MEDS: tizanidine 4mg tablet PO PRN (20:06)
--- NOTE | 2020-05-13 00:16 | NUR ---
Nursing Progress Note: Legal hold: 5250 Client on involuntary status for GD/DTS Report received from nurse with use of SBAR: RAGINI Pickens Why are they here: Pt [facility] she arrived on a stretcher in restraints. She sustained major multiple fractures including spinal fractures, rib fractures, manubrium, sacral, pelvic, and R femur fractures, a pneumothorax and possible right peroneal nerve palsy after attempting suicide by jumping off a freeway overpass in February. After being in the hospital and going to a rehabilitation facility she AMA'd and wheeled herself out into the middle of a road. She is NWB RLE and WBAT LLE, she is supposed to wear a right lower leg splint at night. Pt's Hx includes hypertension, lupus, schizoaffective disorder, and autism. Assessment What has happened this shift: Patient stayed in her room for the shift mechanic. Pt was cooperative and friendly during 1:1 and did not make any innapropriate outbursts at this rn. Pt continues to be demanding when she wants something, but appears to be less so than previous nights. Pt requested norco and muscle relaxer for pain and accepted all hs meds without issue. Pt continues to be on los. When asked about voices, pt denied. S/I, H/I: Denies A/VH: Denies Sleep: Most of shift, ADL's: Pt refuses assistance Group attendance: N/A Were meds taken: Yes Any med S/E: None Mental Status Exam Appearance: lying in bed, discheveled Eye contact: fair Behavior: cooperative Speech: Pressured Mood: cooperative Affect: depressed Thought process: Poverty of thought, disorganized, thought blocking Thought Content: Preoccupation with desire to discharge Cognition: A&O X 3 (not to why here) Insight: Poor Judgment: Poor Interventions PRN's used: Trazodone, [place], xanaflex Therapeutic interventions: Provided PM assessment with therapeutic communication and active listening, maintained a safe and supportive environment, medication administration/education/monitoring, limitations, maintained LOS r/t fall precautions, provided redirection as needed, and monitored behavior and need for intervention. Restraints/seclusion/emergency medication: N/A Justification of Continued Inpatient Treatment: Pt. requires interruption of current crisis, medication adjustments, and a safe and supportive environment. Addendum: 05/13/20 at 0438 by Jef Akhtar RN pt awoke requesting pain medication. when offered norco, pt said, "fuck you, I get 2 of those, why can't you fucking read." pt refused to take any meds after 2 attempts. Pt became verbally abusive. Addendum: 05/13/20 at 0531 by Jef Akhtar RN Pt again requested pain medication. Pt given norco with minimal effect, pain 12/27. Pt was then given tramadol. Pt is now resting in bed.
[2020-05-13] MEDS: HYDROcodone/acetaminophen 5mg/325mg tablet PO PRN (04:43)
[2020-05-13] MEDS: LORazepam 1 MG tablet PO PRN (04:43)
[2020-05-13] MEDS: traMADol 50MG tablet PO PRN (04:43)
[2020-05-13 07:32] VITALS: BP 125/61
[2020-05-13] MEDS ORDERED: lithium carbonate 300mg SR tablet (LithoBID) PO SCH (08:00)
[2020-05-13] MEDS: gabapentin 300mg capsule PO SCH ×3 (08:17→20:49)
[2020-05-13] MEDS: docusate sod 100mg capsule PO SCH ×2 (08:17→20:50)
[2020-05-13] MEDS: tizanidine 4mg tablet PO PRN ×2 (08:17→16:42)
[2020-05-13] MEDS: aspirin 325mg tablet PO SCH (08:18)
[2020-05-13] MEDS: OLANZAPINE 5 MG TABLET PO SCH ×2 (08:18→20:49)
[2020-05-13] MEDS: guanFACINE 1 mg tablet PO SCH ×2 (08:18→20:50)
[2020-05-13] MEDS: LIDOcaine 5% patch TP SCH (12:30)
[2020-05-13] MEDS: NICOTINE POLACRILEX 2 MG LOZENGE BC PRN ×2 (16:42→18:54)
[2020-05-13] MEDS: ibuprofen 200mg tablet PO PRN (16:43)
--- NOTE | 2020-05-13 17:20 | NUR ---
Nursing Progress Note: Legal hold: 5250 Client on involuntary status for GD/DTS Report received from nurse FABRIZIO Greene with use of SBAR Why are they here: [facility] she arrived on a stretcher in restraints. She sustained major multiple fractures including spinal fractures, rib fractures, manubrium, sacral, pelvic, and R femur fractures, a pneumothorax and possible right peroneal nerve palsy after attempting suicide by jumping off a freeway overpass in February. After being in the hospital and going to a rehabilitation facility she AMA'd and wheeled herself out into the middle of a road. She is NWB RLE and WBAT LLE, she is supposed to wear a right lower leg splint at night. Pt's Hx includes hypertension, lupus, schizoaffective disorder, and autism. Assessment What has happened this shift: Pt slept until breakfast and am med pass. She continues to push to go back to her placement of "[facility] She refused a shower. Pt gave herself a sponge bath, and changed her clothing. Her room was cleaned and sanitized due to stool all over the floor and handles of the bed etc. Sheets changed x2 today. Pt is less angry today saying "please and thank you." S/I, H/I: Denies A/VH: Patient appears to be responding to internal stimuli. Sleep: Several naps today. ADL's: Pt. is on LOS for fall precautions and uses a FWW and W/C. Group attendance: No Were Meds taken: Yes Any med S/E: None Mental Status Exam Appearance: Green scrubs Eye contact: Good Behavior: Labile Speech: clear, audible less pressured Mood: Calm Affect: depressed Thought process: disorganized Thought Content: Preoccupation with desire to discharge and delusion that she is being held here illegally,. Cognition: A&O X 3 (not to why here) Insight: Poor Judgment: Poor Interventions PRN's used: N/A Therapeutic interventions: Provided AM assessment with therapeutic communication and active listening, encouraged good hygiene and provided personal hygiene items to clean her self, maintained a safe and supportive environment, medication administration/education/monitoring, limitations, maintained LOS r/t fall precautions, provided redirection as needed, and monitored behavior and need for intervention. Restraints/seclusion/emergency medication: N/A Justification of Continued Inpatient Treatment: Pt. requires interruption of current crisis, medication adjustments, and a safe and supportive environment.
[2020-05-13 19:35] VITALS: BP 115/60
[2020-05-13] MEDS: lithium carbonate 150mg capsule PO SCH (20:49)
--- NOTE | 2020-05-14 01:43 | NUR ---
Nursing Progress Note: Legal hold: 5250 Client on involuntary status for GD/DTS Report received from nurse FABRIZIO Pickens with use of SBAR Why are they here: Pt was a [facility] she arrived on a stretcher in restraints. She sustained major multiple fractures including spinal fractures, rib fractures, manubrium, sacral, pelvic, and R femur fractures, a pneumothorax and possible right peroneal nerve palsy after attempting suicide by jumping off a freeway overpass in February. After being in the hospital and going to a rehabilitation facility she AMA'd and wheeled herself out into the middle of a road. She is NWB RLE and WBAT LLE, she is supposed to wear a right lower leg splint at night. Pt's Hx includes hypertension, lupus, schizoaffective disorder, and autism. Assessment What has happened this shift: Pt denies depression or SI. Pt pleasant and cooperative this shift. Took all meds said please and Thank you for care. Pt remains on LOS. Per sitter pt still refuses any assistance when ambulating to BR. Pt uses a walker and ambulates independently. S/I, H/I: Denies A/VH: Patient appears to be responding to internal stimuli. Sleep: Asleep ADL's: Pt. is on LOS for fall precautions and uses a FWW and W/C. Group attendance: Declined to come to group room for snack. Were Meds taken: Yes Any med S/E: None Mental Status Exam Appearance: Green scrubs Eye contact: Good Behavior: Labile Speech: clear, audible less pressured Mood: Calm Affect: depressed Thought process: disorganized Thought Content: no delusions verbalized Cognition: A&O X 3 (not to why here) Insight: Poor Judgment: Poor Interventions PRN's used: N/A Therapeutic interventions: Provided therapeutic communication and active listening, encouraged good hygiene , maintained a safe and supportive environment, medication administration/education/monitoring, limitations, maintained LOS r/t fall precautions, provided redirection as needed, and monitored behavior and need for intervention. Restraints/seclusion/emergency medication: N/A Justification of Continued Inpatient Treatment: Pt. requires interruption of current crisis, medication adjustments, and a safe and supportive environment.
[2020-05-14] MEDS: tizanidine 4mg tablet PO PRN ×2 (02:22→20:34)
[2020-05-14] MEDS: traMADol 50MG tablet PO PRN ×3 (02:23→19:54)
[2020-05-14] MEDS: NICOTINE POLACRILEX 2 MG LOZENGE BC PRN ×4 (02:23→19:39)
[2020-05-14] MEDS: LORazepam 1 MG tablet PO PRN ×2 (06:09→12:54)
[2020-05-14] MEDS: HYDROcodone/acetaminophen 5mg/325mg tablet PO PRN ×3 (06:10→20:35)
[2020-05-14] MEDS: LIDOcaine 5% patch TP SCH ×2 (07:23→08:00)
[2020-05-14] MEDS: lithium carbonate 150mg capsule PO SCH ×3 (07:23→20:34)
[2020-05-14] MEDS: ibuprofen 200mg tablet PO PRN ×2 (07:24→23:55)
[2020-05-14] MEDS: OLANZAPINE 5 MG TABLET PO SCH ×2 (07:24→20:34)
[2020-05-14] MEDS: docusate sod 100mg capsule PO SCH ×2 (07:25→20:34)
[2020-05-14] MEDS: guanFACINE 1 mg tablet PO SCH ×2 (07:25→20:32)
[2020-05-14] MEDS: gabapentin 300mg capsule PO SCH ×3 (07:25→20:33)
[2020-05-14 08:00] VITALS: BP 131/70
[2020-05-14] MEDS: aspirin 325mg tablet PO SCH (08:27)
--- NOTE | 2020-05-14 08:40 | NUR ---
Received a list of medications that Nuno has taken in the past from [facility]. It was noted that she did well on clozapine. Placed the information in her chart. FRANCK Matias
--- NOTE | 2020-05-14 15:02 | NUR ---
Nursing Progress Note: Legal hold: 5250 Client on involuntary status for GD/DTS Report received from nurse FABRIZIO Greene with use of SBAR Why are they here: [facility] she arrived on a stretcher in restraints. She sustained major multiple fractures including spinal fractures, rib fractures, manubrium, sacral, pelvic, and R femur fractures, a pneumothorax and possible right peroneal nerve palsy after attempting suicide by jumping off a freeway overpass in February. After being in the hospital and going to a rehabilitation facility she AMA'd and wheeled herself out into the middle of a road. She is NWB RLE and WBAT LLE, she is supposed to wear a right lower leg splint at night. Pt's Hx includes hypertension, lupus, schizoaffective disorder, and autism. Assessment What has happened this shift: Pt sleeps most of the shift. She is calm, cooperative and polite today. She is up for meals and addresses her own ADL's. She continues to request to leave based on getting her needs met, "in a better place that will help to take care of her." Pt is medication compliant. S/I, H/I: Denies A/VH: Patient appears to be responding to internal stimuli. Sleep: Several naps today. ADL's: Pt. is on LOS for fall precautions and uses a FWW and W/C. Group attendance: No Were Meds taken: Yes Any med S/E: None Mental Status Exam Appearance: Green scrubs Eye contact: Good Behavior: Labile Speech: clear, audible less pressured Mood: Calm Affect: depressed Thought process: disorganized Thought Content: Preoccupation with desire to discharge and delusion that she is being held here illegally,. Cognition: A&O X 3 (not to why here) Insight: Poor Judgment: Poor Interventions PRN's used: N/A Therapeutic interventions: Provided AM assessment with therapeutic communication and active listening, encouraged good hygiene and provided personal hygiene items to clean her self, maintained a safe and supportive environment, medication administration/education/monitoring, limitations, maintained LOS r/t fall precautions, provided redirection as needed, and monitored behavior and need for intervention. Restraints/seclusion/emergency medication: N/A Justification of Continued Inpatient Treatment: Pt. requires interruption of current crisis, medication adjustments, and a safe and supportive environment.
[2020-05-14 19:41] VITALS: BP_SYST 135; BP_SYST 150; BP_DIAS 63; BP_DIAS 79
[2020-05-14] MEDS: traZODone 50mg tablet PO PRN (23:55)
[2020-05-14] MEDS: sennosides 8.6mg tablet PO PRN (23:59)
--- NOTE | 2020-05-15 02:32 | NUR ---
Nursing Progress Note: Legal hold: 5250 Client on involuntary status for GD/DTS Report received from nurse FABRIZIO Pickens with use of SBAR Why are they here: Pt was a direct admit from [facility] she arrived on a stretcher in restraints. She sustained major multiple fractures including spinal fractures, rib fractures, manubrium, sacral, pelvic, and R femur fractures, a pneumothorax and possible right peroneal nerve palsy after attempting suicide by jumping off a freeway overpass in February. After being in the hospital and going to a rehabilitation facility she AMA'd and wheeled herself out into the middle of a road. She is NWB RLE and WBAT LLE, she is supposed to wear a right lower leg splint at night. Pt's Hx includes hypertension, lupus, schizoaffective disorder, and autism. Assessment What has happened this shift: Pt was demanding and impatient at times. Repeatedly asked for medications when it was to soon for them and became angry. She refused a shower. She became more pleasant later in the shift again saying please and thank you for care. Pt denies depression or SI. Pt pleasant and cooperative this shift. Took all meds. Pt remains on LOS. Per sitter pt still refuses any assistance when ambulating to BR. Pt uses a walker and ambulates independently. S/I, H/I: Denies A/VH: Patient appears to be responding to internal stimuli. Sleep: Asleep ADL's: Pt. is on LOS for fall precautions and uses a FWW and W/C. Group attendance: Declined to come to group room for snack. Were Meds taken: Yes Any med S/E: None Mental Status Exam Appearance: Green scrubs Eye contact: Good Behavior: Labile Speech: clear, audible less pressured Mood: Calm Affect: depressed Thought process: disorganized Thought Content: no delusions verbalized Cognition: A&O X 3 (not to why here) Insight: Poor Judgment: Poor Interventions PRN's used: N/A Therapeutic interventions: Provided therapeutic communication and active listening, encouraged good hygiene , maintained a safe and supportive environment, medication administration/education/monitoring, limitations, maintained LOS r/t fall precautions, provided redirection as needed, and monitored behavior and need for intervention. Restraints/seclusion/emergency medication: N/A Justification of Continued Inpatient Treatment: Pt. requires interruption of current crisis, medication adjustments, and a safe and supportive environment.
[2020-05-15] MEDS: LORazepam 1 MG tablet PO PRN ×2 (04:22→13:01)
[2020-05-15] MEDS: traMADol 50MG tablet PO PRN ×3 (04:23→20:25)
[2020-05-15 07:42] VITALS: BP 149/68
[2020-05-15] MEDS: OLANZAPINE 5 MG TABLET PO SCH ×2 (08:10→20:13)
[2020-05-15] MEDS: docusate sod 100mg capsule PO SCH ×2 (08:10→20:13)
[2020-05-15] MEDS: guanFACINE 1 mg tablet PO SCH ×2 (08:10→20:00)
[2020-05-15] MEDS: lithium carbonate 150mg capsule PO SCH ×3 (08:10→20:14)
[2020-05-15] MEDS: gabapentin 300mg capsule PO SCH ×3 (08:10→20:12)
[2020-05-15] MEDS: HYDROcodone/acetaminophen 5mg/325mg tablet PO PRN (08:18)
[2020-05-15] MEDS: aspirin 325mg tablet PO SCH (08:18)
[2020-05-15] MEDS: NICOTINE POLACRILEX 2 MG LOZENGE BC PRN ×3 (08:18→15:15)
[2020-05-15] MEDS: LIDOcaine 5% patch TP SCH (08:21)
--- NOTE | 2020-05-15 12:02 | NUR ---
Reassessment: Pt PO 75-100% avg regular meals meeting needs. LBM 05/13. No nutrition concerns at this time. Will continue to monitor. Rec: 1. continue regular diet 2. routine bowel care 3. wt per rx Addendum: 05/15/20 at [address] Amended: Links added.
--- NOTE | 2020-05-15 12:55 | NUR ---
1:1 with Nuno Reina was quite labile, laughing inappropriately, and crying at times. She was paranoid and stated [facility] is a "murder factory" and should be "condemned". She complained that her medications are not right and that she needs to be on higher doses of gabapentin and zyprexa. She asked ticket writer to tell the Dr to release her. She stated she can go to [facility] and they can take care of her psychiatrically as well as with her physical therapy. See Wheeler attempted to explain again that she cannot go to [facility] in her current physical state (in a wheelchair and non-weight bearing) and she would not hear this. She asked ticket writer to call her medical case manager, Blaise. She reported she would like to talk to him and ticket writer will provide her with his phone number. FRANCK Matias
[2020-05-15] MEDS: ibuprofen 200mg tablet PO PRN ×2 (13:02→20:15)
--- NOTE | 2020-05-15 13:54 | NUR ---
[employer] OPERATOR Called Nuno's bilingual case manager, Blaise (ph# [phone]), at her request. Gave him an update on how she is doing and her desire to go to [facility]. He reported he will give her a call this afternoon. He asked typewriter repairer NOT to give her his phone # as he does not give it out to his clients. FRANCK Matias
--- NOTE | 2020-05-15 17:20 | NUR ---
Nursing Progress Note: Legal hold: 5250 Client on involuntary status for GD/DTS Report received from nurse FABRIZIO Sol with use of SBAR Why are they here: Pt was a [facility] admit [facility] she arrived on a stretcher in restraints. She sustained major multiple fractures including spinal fractures, rib fractures, manubrium, sacral, pelvic, and R femur fractures, a pneumothorax and possible right peroneal nerve palsy after attempting suicide by jumping off a freeway overpass in February. After being in the hospital and going to a rehabilitation facility she AMA'd and wheeled herself out into the middle of a road. She is NWB RLE and WBAT LLE, she is supposed to wear a right lower leg splint at night. Pt's Hx includes hypertension, lupus, schizoaffective disorder, and autism. Assessment What has happened this shift: Patient awake for breakfast. Patient takes medications without incident. Patient intermittently napped throughout the day. Patient spoke with JANELLE Schaffer and was crying in her room regarding discharge and stating that she doesn't want to be here any longer. Patient requested prn's which were provided. Patient is medication compliant. S/I, H/I: Denies A/VH: Patient appears to be responding to internal stimuli. Sleep: 9.5 hrs NOC, napped ADL's: Pt. is on LOS for fall precautions and uses a FWW and W/C. Group attendance: No Were Meds taken: Yes Any med S/E: None Mental Status Exam Appearance: Well groomed, wearing unit attire. Eye contact: Good Behavior: Laying in bed, gets self to bathroom via walker. Speech: clear, patient yells when she wants something. Mood: Depressed. Affect: Labile. Thought process: disorganized Thought Content: Preoccupation with desire to discharge and delusion that she is being held here illegally. Cognition: A&O X 3 (not to why here) Insight: Poor Judgment: Poor Interventions PRN's used: N/A Therapeutic interventions: Provided AM assessment with therapeutic communication and active listening, encouraged good hygiene and provided personal hygiene items to clean her self, maintained a safe and supportive environment, medication administration/education/monitoring, limitations, maintained LOS r/t fall precautions, provided redirection as needed, and monitored behavior and need for intervention. Restraints/seclusion/emergency medication: N/A Justification of Continued Inpatient Treatment: Pt. requires interruption of current crisis, medication adjustments, and a safe and supportive environment.
[2020-05-15 19:51] VITALS: BP 115/58
[2020-05-15] MEDS: traZODone 50mg tablet PO PRN (20:14)
[2020-05-16] MEDS: NICOTINE POLACRILEX 2 MG LOZENGE BC PRN ×6 (02:46→20:09)
[2020-05-16] MEDS: ibuprofen 200mg tablet PO PRN ×3 (02:46→19:56)
[2020-05-16] MEDS: tizanidine 4mg tablet PO PRN ×3 (02:46→19:54)
[2020-05-16] MEDS: traMADol 50MG tablet PO PRN ×3 (02:46→22:15)
--- NOTE | 2020-05-16 02:55 | NUR ---
Nursing Progress Note: Legal hold: 5250 Client on involuntary status for GD/DTS Report received from FABRIZIO Fraga with use of SBAR Why are they here: [facility] she arrived on a stretcher in restraints. She sustained major multiple fractures including spinal fractures, rib fractures, manubrium, sacral, pelvic, and R femur fractures, a pneumothorax and possible right peroneal nerve palsy after attempting suicide by jumping off a freeway overpass in February. After being in the hospital and going to a rehabilitation facility she AMA'd and wheeled herself out into the middle of a road. She is NWB RLE and WBAT LLE, she is supposed to wear a right lower leg splint at night. Pt's Hx includes hypertension, lupus, schizoaffective disorder, and autism. Assessment What has happened this shift: Pt continues to be easily agitated if she does not get all the PRNs as she dictates but is redirectable and mostly cooperative with care. She refuses help with transfers, the removal of the lidocaine patch, and hygiene care. She is on her menses, and declined any additional pads or underwear offered by this RN. RN attempted to tidy space and pt requested she leave the room. She was compliant with medication and denies all signs and symptoms but continues to believe her discharge should be imminent and minimizes her mental health. Pt awoke at requesting more all available PRNs and a snack; allowed RN to remove lidocaine patch at this time (0250AM). S/I, H/I: Denies A/VH: Denies, not observed to respond to IS Sleep: See Sleep assessment. ADL's: Pt. is on LOS for fall precautions and uses a FWW and W/C. Needs a shower. Group attendance: Declined to come to group room for snack Were Meds taken: Yes; Tenex held Any med S/E: None observed nor reported Mental Status Exam Appearance: Unkempt and disheveled, wearing green scrubs and nonskid socks Eye contact: Good Behavior: Labile, resistive to some care (assessment and patch removal), Isolates to room Speech: clear, audible less pressured Mood: Fine, pt presents as calm but is easily irritated Affect: Blunted Thought process: Linear Thought Content: pain medications Cognition: A&Ox3, remains disoriented to situation Insight: Poor Judgment: Poor Interventions PRN's used: Ultram [id number], Trazodone 50mg, Motrin [id number], Zanaflex 4mg, Nicotine Lozenge Therapeutic interventions: Provided therapeutic communication and active listening, encouraged good hygiene , maintained a safe and supportive environment, medication administration/education/monitoring, limitations, maintained LOS r/t fall precautions, provided redirection as needed, and monitored behavior and need for intervention. Restraints/seclusion/emergency medication: N/A Justification of Continued Inpatient Treatment: Pt. requires interruption of current crisis, medication adjustments, and a safe and supportive environment. Pt continues to need medication management.
[2020-05-16 07:45] VITALS: BP 99/43
[2020-05-16] MEDS: docusate sod 100mg capsule PO SCH ×2 (07:58→19:55)
[2020-05-16] MEDS: guanFACINE 1 mg tablet PO SCH ×2 (07:58→19:55)
[2020-05-16] MEDS: lithium carbonate 150mg capsule PO SCH ×3 (07:59→19:54)
[2020-05-16] MEDS: gabapentin 300mg capsule PO SCH ×3 (08:00→19:55)
[2020-05-16] MEDS: LIDOcaine 5% patch TP SCH (08:02)
[2020-05-16] MEDS: OLANZAPINE 5 MG TABLET PO SCH ×2 (08:03→19:54)
[2020-05-16] MEDS: HYDROcodone/acetaminophen 5mg/325mg tablet PO PRN ×2 (08:05→17:35)
--- NOTE | 2020-05-16 08:15 | NUR ---
DISCHARGE PLANNING Called [facility] to inquire if they will take Nuno back. Spoke to a charge nurse who reported she will ask the doctor if they will take her back. Nurse reported she will call process description writer back. FRANCK Matias
[2020-05-16] MEDS: aspirin 325mg tablet PO SCH (09:10)
[2020-05-16] MEDS: LORazepam 1 MG tablet PO PRN ×3 (10:46→22:16)
--- NOTE | 2020-05-16 17:50 | NUR ---
Nursing Progress Note: Legal hold: 5250 Client on involuntary status for GD/DTS Report received from FABRIZIO Alcazar with use of SBAR Why are they here: Pt [facility] a [facility] she arrived on a stretcher in restraints. She sustained major multiple fractures including spinal fractures, rib fractures, manubrium, sacral, pelvic, and R femur fractures, a pneumothorax and possible right peroneal nerve palsy after attempting suicide by jumping off a freeway overpass in February. After being in the hospital and going to a rehabilitation facility she AMA'd and wheeled herself out into the middle of a road. She is NWB RLE and WBAT LLE, she is supposed to wear a right lower leg splint at night. Pt's Hx includes hypertension, lupus, schizoaffective disorder, and autism. Assessment What has happened this shift: Received pt sleeping at shift change. Due to physical immobility, patient eats all meals in her room. Patient is medication compliant and requests prns frequently throughout the day, or patient is irritable/demanding. Patient utilizes the walker to ambulate to the restroom. Patient naps after breakfast and lunch. S/I, H/I: Denies A/VH: Patient can be seen talking to herself and appears to be responding to IS. Sleep: 10 hrs NOC, napped ADL's: Pt. is on LOS for fall precautions and uses a FWW and W/C. Group attendance: No Were Meds taken: Yes Any med S/E: None Mental Status Exam Appearance: Neat and clean, wearing unit scrubs. Eye contact: Good Behavior: Laying in bed, gets self to bathroom via walker. Speech: clear, patient yells when she wants something. Mood: Depressed. Affect: Labile. Thought process: disorganized Thought Content: Preoccupation with desire to discharge and delusion that she is being held here illegally. Cognition: A&O X 3 (not to why here) Insight: Poor Judgment: Poor Interventions PRN's used: Ativan, [place], Ultram, Motrin, nicotine britany, Zanaflex. Therapeutic interventions: Provided AM assessment with therapeutic communication and active listening, encouraged good hygiene and provided personal hygiene items to clean her self, maintained a safe and supportive environment, medication administration/education/monitoring, limitations, maintained LOS r/t fall precautions, provided redirection as needed, and monitored behavior and need for intervention. Restraints/seclusion/emergency medication: N/A Justification of Continued Inpatient Treatment: Pt. requires interruption of current crisis, medication adjustments, and a safe and supportive environment.
[2020-05-16] MEDS: traZODone 50mg tablet PO PRN ×2 (19:55→22:16)
[2020-05-16 20:00] VITALS: BP 162/64
--- NOTE | 2020-05-17 06:01 | NUR ---
Nursing Progress Note: Legal hold: 5250 Client on involuntary status for GD/DTS Report received from nurse FABRIZIO Rhodes with use of SBAR Why are they here: Pt was a direct admit from [facility] she arrived on a stretcher in restraints. She sustained major multiple fractures including spinal fractures, rib fractures, manubrium, sacral, pelvic, and R femur fractures, a pneumothorax and possible right peroneal nerve palsy after attempting suicide by jumping off a freeway overpass in February. After being in the hospital and going to a rehabilitation facility she AMA'd and wheeled herself out into the middle of a road. She is NWB RLE and WBAT LLE, she is supposed to wear a right lower leg splint at night. Pt's Hx includes hypertension, lupus, schizoaffective disorder, and autism. Assessment What has happened this shift: Patient in bed awake at the beginning of shift. Patient remains on LOS for assistance ambulating. Patient becomes irritable when wanting assistance or medication and shouts at staff. Patient cooperative with medication. PRN Tizanidine, Trazodone, Ativan, Motrin, Tramadol and Nicotine lozenge provided upon patient request. Patient observed ambulating to restroom and resistive to staff assistance. Patient ate snack in her bedroom. Later observed sleeping and does not appear to be having difficulty. S/I, H/I: Denies A/VH: Denies Sleep: Refer to sleep assessment ADL's: Pt. is on LOS for fall precautions and uses a FWW and W/C. Group attendance: NA Were Meds taken: Yes Any med S/E: None observed or reported Mental Status Exam Appearance: Appropriate attire for the unit Eye contact: Good Behavior: Laying in bed, gets self to bathroom via walker. Speech: clear, patient yells when she wants something. Mood: Depressed, Agitated Affect: Labile Thought process: Disorganized Thought Content: Preoccupation with desire to discharge and delusion that she is being held here illegally Cognition: A&O X 3 (not to why here) Insight: Poor Judgment: Poor Interventions PRN's used: Tizanidine, Trazodone, Ativan, Motrin, Tramadol and Nicotine lozenge Therapeutic interventions: Provided AM assessment with therapeutic communication and active listening, encouraged good hygiene and provided personal hygiene items to clean her self, maintained a safe and supportive environment, medication administration/education/monitoring, limitations, maintained LOS r/t fall precautions, provided redirection as needed, and monitored behavior and need for intervention. Restraints/seclusion/emergency medication: N/A Justification of Continued Inpatient Treatment: Pt. requires interruption of current crisis, medication adjustments, and a safe and supportive environment.
[2020-05-17] MEDS: LIDOcaine 5% patch TP SCH (08:00)
[2020-05-17 08:03] VITALS: BP 104/60
[2020-05-17] MEDS: gabapentin 300mg capsule PO SCH ×2 (08:12→12:56)
[2020-05-17] MEDS: guanFACINE 1 mg tablet PO SCH ×2 (08:13→20:39)
[2020-05-17] MEDS: docusate sod 100mg capsule PO SCH ×2 (08:13→20:40)
[2020-05-17] MEDS: OLANZAPINE 5 MG TABLET PO SCH ×2 (08:14→20:40)
[2020-05-17] MEDS: lithium carbonate 150mg capsule PO SCH ×3 (08:14→20:39)
[2020-05-17] MEDS: traMADol 50MG tablet PO PRN ×3 (08:23→20:55)
[2020-05-17] MEDS: NICOTINE POLACRILEX 2 MG LOZENGE BC PRN ×4 (08:34→16:55)
[2020-05-17] MEDS: aspirin 325mg tablet PO SCH (08:34)
--- NOTE | 2020-05-17 10:00 | NUR ---
[facility] Spoke with Graham Baxter (ph# [phone]), to inquire if Nuno can return to [facility]. He suggested justowriter operator fax information including PT notes for review (fax# [phone]). He reported they will not even consider taking her back if she is not cooperative with PT. Informed him justowriter operator will fax updated notes in a couple days. Smash Fixer will consult with tx team regarding PT. Smash Fixer will also talk to Nuno about complying with PT as well. FRANCK Matias
--- NOTE | 2020-05-17 10:34 | NUR ---
1:1 with Nuno Met with Nuno to encourage her to cooperate with PT as a step towards discharge. Initially she was resistant and then later agreed to cooperate with PT. She was emotionally labile and was laughing and crying inappropriately. She exhibited paranoid delusions regarding getting poisoned and fears about getting killed while on the unit. She also expressed fear that her leg is going to get amputated. Reassured her she is safe on the unit and reiterated that cooperating with treatment is a step towards discharge. Consulted with charge weigher, Jef, who reported he will put in another order for PT. FRANCK Matias
[2020-05-17] MEDS: tizanidine 4mg tablet PO PRN ×2 (13:58→20:39)
[2020-05-17] MEDS: LORazepam 1 MG tablet PO PRN ×2 (14:40→20:51)
[2020-05-17] MEDS: HYDROcodone/acetaminophen 5mg/325mg tablet PO PRN ×2 (16:39→21:41)
--- NOTE | 2020-05-17 17:58 | NUR ---
Nursing Progress Note: Legal hold: 5250 Client on involuntary status for GD/DTS Report received from nurse FABRIZIO Sol with use of SBAR Why are they here: Pt was a direct admit from [facility] she arrived on a stretcher in restraints. She sustained major multiple fractures including spinal fractures, rib fractures, manubrium, sacral, pelvic, and R femur fractures, a pneumothorax and possible right peroneal nerve palsy after attempting suicide by jumping off a freeway overpass in February. After being in the hospital and going to a rehabilitation facility she AMA'd and wheeled herself out into the middle of a road. She is NWB RLE and WBAT LLE, she is supposed to wear a right lower leg splint at night. Pt's Hx includes hypertension, lupus, schizoaffective disorder, and autism. Assessment What has happened this shift: Pt. is LOS. RN received pt. asleep in bed at start of shift. Pt. took medications and ate breakfast I her room. Pt. refuses to follow non-weight bearing orders and gets up to the bathroom with use of walker. Pt. requesting PRN analgesic and received Tramadol with good effect. 1:1 done at bedside, Pt. denies SI/HI, A/V hallucinations. Pt. reports she wants to go back to [place], but is unsure if they will accept her back with her need for a walker. Physical therapy ordered for pt. and pt. encouraged to participate and follow orders. Pt. has moments of agitation and appears to be responding to internal stimuli, at times yelling at someone in the room. Pt. received Ativan x1 for episode of agitation with good effect. Pt. c/o lower extremitiy pain and received PRN ultram x2 and [place] x1 and Zanaflex x1. S/I, H/I: Denies A/VH: Patient can be seen talking to herself and appears to be responding to IS. Sleep: 10 hrs NOC, napped ADL's: Pt. is on LOS for fall precautions and uses a FWW and W/C. Group attendance: No Were Meds taken: Yes Any med S/E: None Mental Status Exam Appearance: Neat and clean, wearing unit scrubs. Eye contact: Good Behavior: Laying in bed, gets self to bathroom via walker. Speech: clear, patient yells when she wants something. Mood: Depressed. Affect: Labile. Thought process: disorganized Thought Content: Preoccupation with desire to discharge and delusion that she is being held here illegally. Cognition: A&O X 3 (not to why here) Insight: Poor Judgment: Poor Interventions PRN's used: Ativan, [place], Ultram, Motrin, nicotine britany, Zanaflex. Therapeutic interventions: Provided AM assessment with therapeutic communication and active listening, encouraged good hygiene and provided personal hygiene items to clean her self, maintained a safe and supportive environment, medication administration/education/monitoring, limitations, maintained LOS r/t fall precautions, provided redirection as needed, and monitored behavior and need for intervention. Restraints/seclusion/emergency medication: N/A Justification of Continued Inpatient Treatment: Pt. requires interruption of current crisis, medication adjustments, and a safe and supportive environment.
[2020-05-17 19:00] VITALS: BP 123/59
[2020-05-17] MEDS: traZODone 50mg tablet PO PRN ×2 (20:39→21:38)
[2020-05-17] MEDS: polyethylene glycol 3350 17gm powd pack PO SCH (20:39)
[2020-05-17] MEDS: ibuprofen 200mg tablet PO PRN (20:40)
[2020-05-17] MEDS: nystatin 15 GM powder TP SCH (20:48)
[2020-05-17] MEDS: gabapentin 400mg capsule PO SCH (20:56)
[2020-05-17] MEDS ORDERED: gabapentin 300mg capsule PO SCH (21:00)
--- NOTE | 2020-05-18 04:28 | NUR ---
Nursing Progress Note: Legal hold: 5250 Client on involuntary status for GD/DTS Report received from nurse Jef RN with use of SBAR Why are they here: Pt was a direct admit from [facility] she arrived on a stretcher in restraints. She sustained major multiple fractures including spinal fractures, rib fractures, manubrium, sacral, pelvic, and R femur fractures, a pneumothorax and possible right peroneal nerve palsy after attempting suicide by jumping off a freeway overpass in February. After being in the hospital and going to a rehabilitation facility she AMA'd and wheeled herself out into the middle of a road. She is NWB RLE and WBAT LLE, she is supposed to wear a right lower leg splint at night. Pt's Hx includes hypertension, lupus, schizoaffective disorder, and autism. Assessment What has happened this shift: Patient in bed awake at the beginning of shift; patient self repositioning and toileting as needed but remains on LOS as she is fall risk. Patient irritable if needs are not met as soon as requested but responsive to nurse redirection. Patient became tearful and loud when global technical writer explained her Tramadol decreased to 50mg and quickly requested [place]. Water And Gas Helper encouraged her to allow Tramadol to take effect; she was cooperative but continued to request [place]. Pain appeared to be managed as patient had fallen asleep and did not appear to be having difficulty. Patient ate HS snack in her bed. She denies SI, HI, A/VH. She reports, "I just need to go to [place] for medical care." Water And Gas Helper explained to patient she would need to participate in PT prior to discharging unit; she again began to cry and stated, "in all this time they haven't wanted to help me. What's the point now?" PRN Ativan provided with positive effect. Patient observed sleeping and does not appear to be having difficulty. S/I, H/I: Denies A/VH: Denies Sleep: Refer to sleep assessment ADL's: Pt. is on LOS for fall precautions and uses a FWW and W/C. Group attendance: NA Were Meds taken: Yes Any med S/E: None observed or reported Mental Status Exam Appearance: Appropriate attire for the unit Eye contact: Good Behavior: Laying in bed, gets self to bathroom via walker. Speech: clear, patient yells when she wants something. Mood: Depressed, Agitated Affect: Labile Thought process: Disorganized Thought Content: Preoccupation with desire to discharge Cognition: A&O X 3 (not to why here) Insight: Poor Judgment: Poor Interventions PRN's used: Tizanidine, Trazodone, Ativan, Motrin, Tramadol Therapeutic interventions: Provided AM assessment with therapeutic communication and active listening, encouraged good hygiene and provided personal hygiene items to clean her self, maintained a safe and supportive environment, medication administration/education/monitoring, limitations, maintained LOS r/t fall precautions, provided redirection as needed, and monitored behavior and need for intervention. Restraints/seclusion/emergency medication: N/A Justification of Continued Inpatient Treatment: Pt. requires interruption of current crisis, medication adjustments, and a safe and supportive environment.
[2020-05-18 07:30] VITALS: BP 124/64
[2020-05-18] MEDS: OLANZAPINE 5 MG TABLET PO SCH ×2 (07:53→20:15)
[2020-05-18] MEDS: lithium carbonate 150mg capsule PO SCH ×3 (07:53→20:14)
[2020-05-18] MEDS: gabapentin 400mg capsule PO SCH ×3 (07:53→20:15)
[2020-05-18] MEDS: guanFACINE 1 mg tablet PO SCH ×2 (07:54→20:14)
[2020-05-18] MEDS: docusate sod 100mg capsule PO SCH ×2 (07:54→20:14)
[2020-05-18] MEDS: aspirin 325mg tablet PO SCH (07:57)
[2020-05-18] MEDS: traMADol 50MG tablet PO PRN ×3 (07:58→20:14)
[2020-05-18] MEDS: nystatin 15 GM powder TP SCH ×2 (08:00→20:22)
[2020-05-18] MEDS: LIDOcaine 5% patch TP SCH (08:48)
[2020-05-18] MEDS: tizanidine 4mg tablet PO PRN ×2 (13:41→20:15)
[2020-05-18] MEDS: LORazepam 1 MG tablet PO PRN (13:42)
[2020-05-18] MEDS: ondansetron 4mg rapidly disintigrating tab PO PRN (15:38)
[2020-05-18] MEDS: HYDROcodone/acetaminophen 5mg/325mg tablet PO PRN (15:42)
[2020-05-18] MEDS: NICOTINE POLACRILEX 2 MG LOZENGE BC PRN ×2 (15:42→19:02)
--- NOTE | 2020-05-18 18:04 | NUR ---
Nursing Progress Note: Legal hold: 5250 Client on involuntary status for GD/DTS Report received from nurse FABRIZIO Michaud with use of SBAR Why are they here: [facility] she arrived on a stretcher in restraints. She sustained major multiple fractures including spinal fractures, rib fractures, manubrium, sacral, pelvic, and R femur fractures, a pneumothorax and possible right peroneal nerve palsy after attempting suicide by jumping off a freeway overpass in February. After being in the hospital and going to a rehabilitation facility she AMA'd and wheeled herself out into the middle of a road. She is NWB RLE and WBAT LLE, she is supposed to wear a right lower leg splint at night. Pt's Hx includes hypertension, lupus, schizoaffective disorder, and autism. Assessment What has happened this shift: Pt. is LOS. RN received pt. asleep in bed at start of shift. Pt. took medications and ate breakfast I her room. Pt. refuses to follow non-weight bearing orders and gets up to the bathroom with use of walker. Staff on LOS offers to assist pt., however, pt. becomes agitated and refuses. Pt. seen by PT and exercises done with weights. 1:1 done at bedside, Pt. denies SI/HI, A/V hallucinations. Pt. has moments of agitation and appears to respond to internal stimuli, however, during these times pt. often requests medication when addressed during outbursts and pt. becomes calm. Pt. received PRNs of Zanaflex, [place], Ultram for lower extremity pain with good effect, Ativan for anxiety with good effect, Zofran for nausea with good effect. Pt. continues to c/o constipation, Miralaax added to pt.s daily meds. S/I, H/I: Denies A/VH: Denies Sleep: 10 hrs NOC, napped ADL's: Pt. is on LOS for fall precautions and uses a FWW and W/C. Group attendance: No Were Meds taken: Yes Any med S/E: None Mental Status Exam Appearance: Neat and clean, wearing unit scrubs. Eye contact: Good Behavior: Isolates to room Speech: clear, patient yells when she wants something. Mood: Depressed, agitated Affect: Labile. Thought process: Linear Thought Content: Focused on medications Cognition: A&O X 3 (not to why here) Insight: Poor Judgment: Poor Interventions PRN's used: Ativan, [place], Ultram, Motrin, nicotine britany, Zanaflex. Therapeutic interventions: Provided AM assessment with therapeutic communication and active listening, encouraged good hygiene and provided personal hygiene items to clean her self, maintained a safe and supportive environment, medication administration/education/monitoring, limitations, maintained LOS r/t fall precautions, provided redirection as needed, and monitored behavior and need for intervention. Restraints/seclusion/emergency medication: N/A Justification of Continued Inpatient Treatment: Pt. requires interruption of current crisis, medication adjustments, and a safe and supportive environment.
[2020-05-18 19:00] VITALS: BP 139/71
[2020-05-18] MEDS: ibuprofen 200mg tablet PO PRN (19:02)
[2020-05-18] MEDS: polyethylene glycol 3350 17gm powd pack PO SCH (20:14)
[2020-05-18] MEDS: traZODone 50mg tablet PO PRN (20:14)
[2020-05-18] MEDS ORDERED: traMADol 50MG tablet PO ONE (20:30)
[2020-05-18] MEDS: lurasidone 60mg tablet PO SCH (20:34)
[2020-05-18] MEDS: olanzapine 10mg tablet PO SCH (21:00)
[2020-05-19] MEDS: traZODone 50mg tablet PO PRN ×2 (01:43→20:59)
[2020-05-19] MEDS: LORazepam 1 MG tablet PO PRN (01:55)
[2020-05-19] MEDS: traMADol 50MG tablet PO PRN ×3 (03:51→20:00)
--- NOTE | 2020-05-19 05:25 | NUR ---
Nursing Progress Note: Legal hold: 5250 Client on involuntary status for GD/DTS Report received from nurse Jef RN with use of SBAR Why are they here: Pt [facility] a [facility] she arrived on a stretcher in restraints. She sustained major multiple fractures including spinal fractures, rib fractures, manubrium, sacral, pelvic, and R femur fractures, a pneumothorax and possible right peroneal nerve palsy after attempting suicide by jumping off a freeway overpass in February. After being in the hospital and going to a rehabilitation facility she AMA'd and wheeled herself out into the middle of a road. She is NWB RLE and WBAT LLE, she is supposed to wear a right lower leg splint at night. Pt's Hx includes hypertension, lupus, schizoaffective disorder, and autism. Assessment What has happened this shift: Patient laying in bed awake at the beginning of shift. Patient denies SI, HI, A/VH. Reports, "I just want to get out here." Compliant with all medication; started PO Latuda this shift and no ASE observed or reported. Patient continuously c/o pain throughout this shift, causing irritability and restlessness. PRNs Tizanidine, Trazodone, Ativan, Motrin, Tramadol provided upon with request. Patient ate HS snack at bedside. Observed sleeping between medications. She continues to refuse staff assistance when ambulating to the restroom. Toileted several times this shift and will not allow staff to get too close behind or touch her at all. Patient continues to raise her voice when she feels her needs are not being met quick enough. S/I, H/I: Denies A/VH: Denies Sleep: Refer to sleep assessment ADL's: Pt. is on LOS for fall precautions and uses a FWW and W/C. Group attendance: NA Were Meds taken: Yes Any med S/E: None observed or reported Mental Status Exam Appearance: Appropriate attire for the unit, hair unkept, malodorous Eye contact: Good Behavior: Laying in bed, gets self to bathroom via walker. Speech: clear, patient yells when she wants something. Mood: Depressed, Agitated Affect: Labile Thought process: Disorganized Thought Content: Preoccupation with desire to discharge Cognition: A&O X 3 (not to why here) Insight: Poor Judgment: Poor Interventions PRN's used: Tizanidine, Trazodone, Ativan, Motrin, Tramadol Therapeutic interventions: Provided AM assessment with therapeutic communication and active listening, encouraged good hygiene and provided personal hygiene items to clean her self, maintained a safe and supportive environment, medication administration/education/monitoring, limitations, maintained LOS r/t fall precautions, provided redirection as needed, and monitored behavior and need for intervention. Restraints/seclusion/emergency medication: N/A Justification of Continued Inpatient Treatment: Pt. requires interruption of current crisis, medication adjustments, and a safe and supportive environment.
[2020-05-19 07:41] VITALS: BP 113/56
[2020-05-19] MEDS: nystatin 15 GM powder TP SCH ×2 (08:00→20:00)
[2020-05-19] MEDS: lithium carbonate 150mg capsule PO SCH ×3 (08:03→19:31)
[2020-05-19] MEDS: gabapentin 400mg capsule PO SCH ×3 (08:04→19:32)
[2020-05-19] MEDS: HYDROcodone/acetaminophen 5mg/325mg tablet PO PRN ×3 (08:04→20:58)
[2020-05-19] MEDS: docusate sod 100mg capsule PO SCH ×2 (08:05→19:30)
[2020-05-19] MEDS: OLANZAPINE 5 MG TABLET PO SCH (08:05)
[2020-05-19] MEDS: guanFACINE 1 mg tablet PO SCH ×2 (08:07→19:31)
[2020-05-19] MEDS: aspirin 325mg tablet PO SCH (08:13)
[2020-05-19] MEDS: LIDOcaine 5% patch TP SCH (08:29)
[2020-05-19] MEDS: NICOTINE POLACRILEX 2 MG LOZENGE BC PRN ×2 (13:13→15:58)
--- NOTE | 2020-05-19 18:07 | NUR ---
Nursing Progress Note: Legal hold: 5250 Client on involuntary status for GD/DTS Report received from nurse FABRIZIO Michaud with use of SBAR Why are they here: [facility] she arrived on a stretcher in restraints. She sustained major multiple fractures including spinal fractures, rib fractures, manubrium, sacral, pelvic, and R femur fractures, a pneumothorax and possible right peroneal nerve palsy after attempting suicide by jumping off a freeway overpass in February. After being in the hospital and going to a rehabilitation facility she AMA'd and wheeled herself out into the middle of a road. She is NWB RLE and WBAT LLE, she is supposed to wear a right lower leg splint at night. Pt's Hx includes hypertension, lupus, schizoaffective disorder, and autism. Assessment What has happened this shift: Pt. is LOS. RN received pt. asleep in bed at start of shift. Pt. took medications and ate breakfast I her room. Pt. refuses to follow non-weight bearing orders and gets up to the bathroom with use of walker. Staff on LOS offers to assist pt., however, pt. refuses. PT. saw pt. however, per PT pt. does not participate adequately in exercises. PT. to re-evaluate pt. on Thursday. Staff to encourage PT exercises with pt. q day. Pt. received Ultram x2, [place] x1 for back pain with good effect. Pt. had no outbursts today. Pt. states, I just want to go home. RN encouraged pt. to participate in PT exercises. Pt. reports she doesnt know why she is here, that she should have gone to a medical hospital instead. S/I, H/I: Denies A/VH: Denies Sleep: Pt. napped intermittently. ADL's: Pt. is on LOS for fall precautions and uses a FWW and W/C. Group attendance: No Were Meds taken: Yes Any med S/E: Denies. Mental Status Exam Appearance: Neat and clean, wearing unit scrubs. Eye contact: Good Behavior: Isolates to room Speech: clear, patient yells when she wants something. Mood: Euthymic with some depression. Affect: Labile. Thought process: Linear Thought Content: Discharge. Cognition: A&O X 3 (not to why here) Insight: Poor Judgment: Poor Interventions PRN's used: Norcox1, Ultramx2 , Nicotinex1 Therapeutic interventions: Provided AM assessment with therapeutic communication and active listening, encouraged good hygiene and provided personal hygiene items to clean her self, maintained a safe and supportive environment, medication administration/education/monitoring, limitations, maintained LOS r/t fall precautions, provided redirection as needed, and monitored behavior and need for intervention. Restraints/seclusion/emergency medication: N/A Justification of Continued Inpatient Treatment: Pt. requires interruption of current crisis, medication adjustments, and a safe and supportive environment.
[2020-05-19 19:00] VITALS: BP 135/74
[2020-05-19] MEDS: lurasidone 60mg tablet PO SCH (19:31)
[2020-05-19] MEDS: polyethylene glycol 3350 17gm powd pack PO SCH (19:31)
[2020-05-19] MEDS: ibuprofen 200mg tablet PO PRN (19:32)
[2020-05-19] MEDS: olanzapine 10mg tablet PO SCH (19:32)
[2020-05-19] MEDS: tizanidine 4mg tablet PO PRN (19:56)
[2020-05-19] MEDS: ondansetron 4mg rapidly disintigrating tab PO PRN (20:59)
[2020-05-20] MEDS: ibuprofen 200mg tablet PO PRN ×2 (01:41→11:09)
[2020-05-20] MEDS: traMADol 50MG tablet PO PRN ×4 (01:41→23:36)
[2020-05-20] MEDS: LORazepam 1 MG tablet PO PRN ×4 (01:42→23:36)
--- NOTE | 2020-05-20 02:08 | NUR ---
Nursing Progress Note: Legal hold: 5250 Client on involuntary status for GD/DTS Report received from nurse Jef RN with use of SBAR Why are they here: Pt [facility] she arrived on a stretcher in restraints. She sustained major multiple fractures including spinal fractures, rib fractures, manubrium, sacral, pelvic, and R femur fractures, a pneumothorax and possible right peroneal nerve palsy after attempting suicide by jumping off a freeway overpass in February. After being in the hospital and going to a rehabilitation facility she AMA'd and wheeled herself out into the middle of a road. She is NWB RLE and WBAT LLE, she is supposed to wear a right lower leg splint at night. Pt's Hx includes hypertension, lupus, schizoaffective disorder, and autism. Assessment What has happened this shift: Patient is with a sitter awake in bed, hateful asking for pain medicine, was given Motrin and still painful after 30 minutes given Ultram and still complain of pain after an hour where [place] was given. Patient took the rest of her night medications, and wants me to call the doctor for more pain medications. Pt. refuses to follow non-weight bearing orders and gets up to the bathroom with use of walker. Sitter offers to assist pt., however, pt. refuses. Patient was reported by AM shift, refused to work with PT refusing to follow the exercises. PT. to re-evaluate pt. on Thursday. Patient was able to sleep and awaken at almost 2AM asking for more pain meds. due meds was given. S/I, H/I: Denies A/VH: Denies Sleep:slept after multiple pain meds. ADL's: Pt. is on LOS for fall precautions and uses a FWW and W/C. Group attendance: No Were Meds taken: Yes Any med S/E: Denies. Mental Status Exam Appearance: Neat and clean, wearing unit scrubs. Eye contact: Good Behavior: Isolates to room Speech: clear, patient yells when she wants something. Mood: Euthymic with some depression. Affect: Labile. Thought process: Linear Thought Content: Discharge. Cognition: A&O X 3 (not to why here) Insight: Poor Judgment: Poor Interventions PRN's used: [place], Ultram, Motrin, Zanaflex, Ativan Therapeutic interventions: Provided with therapeutic communication and active listening, encouraged good hygiene and provided personal hygiene items to clean her self, maintained a safe and supportive environment, medication administration/education/monitoring, limitations, maintained LOS r/t fall precautions, provided redirection as needed, and monitored behavior and need for intervention. Restraints/seclusion/emergency medication: N/A Justification of Continued Inpatient Treatment: Pt. requires interruption of current crisis, medication adjustments, and a safe and supportive environment.
[2020-05-20 07:00] VITALS: BP 115/69
[2020-05-20] MEDS: OLANZAPINE 5 MG TABLET PO SCH (07:43)
[2020-05-20] MEDS: docusate sod 100mg capsule PO SCH ×2 (07:44→20:16)
[2020-05-20] MEDS: gabapentin 400mg capsule PO SCH ×3 (07:44→20:17)
[2020-05-20] MEDS: NICOTINE POLACRILEX 2 MG LOZENGE BC PRN ×3 (07:44→13:10)
[2020-05-20] MEDS: lithium carbonate 150mg capsule PO SCH ×3 (07:44→20:17)
[2020-05-20] MEDS: aspirin 325mg tablet PO SCH (07:44)
[2020-05-20] MEDS: HYDROcodone/acetaminophen 5mg/325mg tablet PO PRN ×2 (07:45→20:16)
[2020-05-20] MEDS: guanFACINE 1 mg tablet PO SCH ×2 (07:45→20:16)
[2020-05-20] MEDS: LIDOcaine 5% patch TP SCH (07:46)
[2020-05-20] MEDS: nystatin 15 GM powder TP SCH ×2 (08:00→20:00)
[2020-05-20] MEDS: tizanidine 4mg tablet PO PRN ×2 (11:09→20:16)
--- NOTE | 2020-05-20 17:23 | NUR ---
Nursing Progress Note: Legal hold: 5250 Client on involuntary status for GD/DTS Report received from nurse FABRIZIO Michaud with use of SBAR Why are they here: [facility] she arrived on a stretcher in restraints. She sustained major multiple fractures including spinal fractures, rib fractures, manubrium, sacral, pelvic, and R femur fractures, a pneumothorax and possible right peroneal nerve palsy after attempting suicide by jumping off a freeway overpass in February. After being in the hospital and going to a rehabilitation facility she AMA'd and wheeled herself out into the middle of a road. She is NWB RLE and WBAT LLE, she is supposed to wear a right lower leg splint at night. Pt's Hx includes hypertension, lupus, schizoaffective disorder, and autism. Assessment What has happened this shift: Received pt sleeping in bed at shift change. Pt. eats her breakfast and her room under LOS for falls. Patient gets up on her own and uses walker to get to the restroom. Patient takes her medications without incident. prns requested throughout the day with good effect. There have been no behavioral issues this shift. Patient is guarded in her answers and dismissive when she has what she needs. S/I, H/I: Denies A/VH: Denies, but patient is observed talking to herself. Sleep: 7.5 hrs NOC. Pt. napped intermittently. ADL's: Pt. is on LOS for fall precautions and uses a FWW and W/C. Group attendance: No Were Meds taken: Yes Any med S/E: Denies. Mental Status Exam Appearance: Neat and clean, wearing unit scrubs. Eye contact: Good Behavior: Isolates to room Speech: clear, patient yells when she wants something. Mood: Euthymic with some depression. Affect: Labile. Thought process: Linear Thought Content: Discharge. Cognition: A&O X 3 (not to why here) Insight: Poor Judgment: Poor Interventions PRN's used: Norcox1, Ultramx2 , Nicotinex3, Motrin, Ativan Therapeutic interventions: Provided AM assessment with therapeutic communication and active listening, encouraged good hygiene and provided personal hygiene items to clean her self, maintained a safe and supportive environment, medication administration/education/monitoring, limitations, maintained LOS r/t fall precautions, provided redirection as needed, and monitored behavior and need for intervention. Restraints/seclusion/emergency medication: N/A Justification of Continued Inpatient Treatment: Pt. requires interruption of current crisis, medication adjustments, and a safe and supportive environment.
[2020-05-20] MEDS: traZODone 50mg tablet PO PRN ×2 (20:16→23:36)
[2020-05-20] MEDS: olanzapine 10mg tablet PO SCH (20:16)
[2020-05-20] MEDS: polyethylene glycol 3350 17gm powd pack PO SCH (20:17)
[2020-05-20] MEDS: lurasidone 20mg tablet PO SCH (20:17)
--- NOTE | 2020-05-21 05:23 | NUR ---
Nursing Progress Note: Legal hold: 5270 Client on involuntary status for GD/DTS Report received from nurse Jef RN with use of SBAR Why are they here: [facility] she arrived on a stretcher in restraints. She sustained major multiple fractures including spinal fractures, rib fractures, manubrium, sacral, pelvic, and R femur fractures, a pneumothorax and possible right peroneal nerve palsy after attempting suicide by jumping off a freeway overpass in February. After being in the hospital and going to a rehabilitation facility she AMA'd and wheeled herself out into the middle of a road. She is NWB RLE and WBAT LLE, she is supposed to wear a right lower leg splint at night. Pt's Hx includes hypertension, lupus, schizoaffective disorder, and autism. Assessment What has happened this shift: Patient in bed awake at the beginning of shift. Patient taken off of LOS with use of bed alarm and tolerating well at this time. She continues to refuse staff assistance when ambulating to the restroom. Patient continues to deny MH symptoms. Patient loud and demanding when wanting her needs met right away. She continues to call staff derogatory names, such as, "dumbass and moron." Patient cooperative with all medication and PRNs Trazodone, Ativan, Tizanidine and Tramadol provided upon request. Patient ate snack in bed. Observed sleeping and does not appear to be having difficulty. S/I, H/I: Denies A/VH: Denies Sleep: Refer to sleep assessment ADL's: Pt. is on bed alarm for fall precautions and uses a FWW and W/C. Group attendance: NA Were Meds taken: Yes Any med S/E: None observed or reported Mental Status Exam Appearance: Appropriate attire for the unit, hair unkept, malodorous Eye contact: Good Behavior: Laying in bed, gets self to bathroom via walker. Speech: clear, patient yells when she wants something. Mood: Irritable Affect: Labile Thought process: Disorganized Thought Content: Preoccupation with desire to discharge, medication Cognition: A&O X 3 (not to why here) Insight: Poor Judgment: Poor Interventions PRN's used: Tizanidine, Trazodone, Ativan, Tramadol Therapeutic interventions: Provided AM assessment with therapeutic communication and active listening, encouraged good hygiene and provided personal hygiene items to clean her self, maintained a safe and supportive environment, medication administration/education/monitoring, limitations, maintained LOS r/t fall precautions, provided redirection as needed, and monitored behavior and need for intervention. Restraints/seclusion/emergency medication: N/A Justification of Continued Inpatient Treatment: Pt. requires interruption of current crisis, medication adjustments, and a safe and supportive environment.
[2020-05-21 08:00] VITALS: BP 147/81
[2020-05-21] MEDS: nystatin 15 GM powder TP SCH ×2 (08:00→20:00)
[2020-05-21] MEDS: guanFACINE 1 mg tablet PO SCH ×2 (08:05→19:33)
[2020-05-21] MEDS: OLANZAPINE 5 MG TABLET PO SCH (08:05)
[2020-05-21] MEDS: lithium carbonate 150mg capsule PO SCH ×3 (08:05→19:33)
[2020-05-21] MEDS: docusate sod 100mg capsule PO SCH ×2 (08:05→19:32)
[2020-05-21] MEDS: aspirin 325mg tablet PO SCH (08:06)
[2020-05-21] MEDS: gabapentin 400mg capsule PO SCH ×3 (08:06→19:33)
[2020-05-21] MEDS: traMADol 50MG tablet PO PRN ×2 (08:07→19:34)
[2020-05-21] MEDS: magnesium hydroxide 30ml (MOM) UD suspension PO PRN (08:19)
[2020-05-21] MEDS: LIDOcaine 5% patch TP SCH (08:19)
[2020-05-21] MEDS: LORazepam 1 MG tablet PO PRN ×2 (12:09→21:31)
[2020-05-21] MEDS: HYDROcodone/acetaminophen 5mg/325mg tablet PO PRN ×2 (12:16→21:30)
--- NOTE | 2020-05-21 13:21 | NUR ---
DISCHARGE PLANNING Nuno asked comic writer to fax notes to [facility]. She reported she is contesting the [address]. She reported she called and spoke to Sahil at [facility] who suggested she have comic writer fax notes. Called Sahil, Intake (ph# [phone]), who confirmed that Nuno had called him today. He suggested comic writer fax information including PT notes for review (fax# [phone]). Faxed the requested information. FRANCK Matias
--- NOTE | 2020-05-21 13:54 | NUR ---
Nursing Progress Note: Legal hold: 5270 Client on voluntary/involuntary status for GD/DTS Report received from nurse with use of SBAR: FABRIZIO Rhodes Why are they here: [facility] she arrived on a stretcher in restraints. She sustained major multiple fractures including spinal fractures, rib fractures, manubrium, sacral, pelvic, and R femur fractures, a pneumothorax and possible right peroneal nerve palsy after attempting suicide by jumping off a freeway overpass in February. After being in the hospital and going to a rehabilitation facility she AMA'd and wheeled herself out into the middle of a road. She is NWB RLE and WBAT LLE, she is supposed to wear a right lower leg splint at night. Pt's Hx includes hypertension, lupus, schizoaffective disorder, and autism. Assessment What has happened this shift: Received pt. sleeping in bed at the beginning of the shift, she awoke and ate breakfast in her room. Pt. was taken off LOS precautions, and continues to use a FWW and W/C, refuses assistance and is non-compliant with NWB orders. Bed alarm is in use, pt. non-compliant with using call-light before getting up to use bathroom or W/C despite encouragement from staff. 1:1 completed at bedside, pt. continues to present as cooperative, fatigued, anxious, restless, agitated at times, guarded, and withdrawn. She continues to deny MH s/s, however presents with internal preoccupation at times AEB distraction and is observed to be talking aloud to herself in her room during the shift. Pt. does admit to some depression, and her mood remains labile, with some tearful episodes and agitation exhibited during the shift. When questioned regarding her depression, pt. states, "I can't get around by myself so I think that's why." She continues to make delusional statements regarding her belief that she feels that she should be on a medical floor instead of a MH floor, and does not need physical therapy while here. However, pt. does participate half-heartedly in physical therapy exercises given to her by by PLiseT. with this sql report writer during the shift. In the afternoon, pt. was heard crying and yelling out in her room r/t her ongoing belief that she is ready to discharge. She was assisted by this sql report writer to make a telephone call to follow-up with [facility]. Pt's social media executive will fax pt. records there per her request. Pt. is aware that if she wins her hearing today she will need to find her own placement, and she appears to be actively working on this. PRN Ativan and pain medication administered per pt. request, will continue to monitor. S/I, H/I: Denies A/VH: Denies, however presents with internal preoccupation AEB distraction and is observed to be talking aloud to herself at times Sleep: Sleep hours are 7, pt. naps intermittently throughout the shift ADL's: Pt. remains a fall risk and uses a FWW and W/C, she continues to be NWB to RLE and WBAT to LLE. Pt. continues to be non-compliant with NWB orders. Group attendance: No Were meds taken: Yes Any med S/E: None Mental Status Exam Appearance: Hair disheveled r/t laying in bed, however appropriately dressed Eye contact: Fair Behavior: Cooperative, fatigued, anxious, restless, agitated at times, guarded, and withdrawn Speech: WNL, becomes loud and intense when agitated Mood: Guarded, restless, and agitated at times Affect: Labile Thought process: Poverty of thought Thought Content: Preoccupation with desire to discharge, possible A/V/DARLING and paranoid delusions Cognition: A&O X 3 (not to why here) Insight: Poor Judgment: Poor Interventions PRN's used: Ultram, [place], and Ativan Therapeutic interventions: Maintained a safe and supportive environment, ensured contract for safety, provided clear and simple instructions, encouraged compliance with physical/weight bearing limitations, maintained fall precautions, provided redirection as needed, monitored behavior and need for intervention, provided active listening and positive encouragement, and maintained Q 15min safety checks. Restraints/seclusion/emergency medication: N/A Justification of Continued Inpatient Treatment: Per AARON Winston, pt. continues to require titration of medications and a safe and supportive environment.
--- NOTE | 2020-05-21 15:53 | NUR ---
Sahil from [facility] (ph# [phone]) called to report that he had reviewed Nuno's information that was faxed today. He reported she made "insignificant gains while in rehab previously du to non-compliance". He reported that if she can consistently adhere to non-weight bearing they will re-consider taking her back. He stated, "nothing has changed from when she was here and she is not going to benefit". Apprised Nuno and she stated she is not going to contest her 5270. She asked play writer to find out if there are other rehabs in [place]. Tile Molder will look to see if there are other options, however, until she is compliant she likely would not get accepted. FRANCK Matias
[2020-05-21] MEDS: NICOTINE POLACRILEX 2 MG LOZENGE BC PRN (16:03)
[2020-05-21 19:24] VITALS: BP 138/77
[2020-05-21] MEDS: lurasidone 20mg tablet PO SCH (19:32)
[2020-05-21] MEDS: tizanidine 4mg tablet PO PRN (19:32)
[2020-05-21] MEDS: olanzapine 10mg tablet PO SCH (19:33)
[2020-05-21] MEDS: traZODone 50mg tablet PO PRN ×2 (19:33→21:30)
[2020-05-21] MEDS: polyethylene glycol 3350 17gm powd pack PO SCH (19:34)
[2020-05-21] MEDS: ondansetron 4mg rapidly disintigrating tab PO PRN (21:34)
--- NOTE | 2020-05-22 04:57 | NUR ---
Nursing Progress Note: Legal hold: 5270 Client on involuntary status for GD/DTS Report received from nurse Jef RN with use of SBAR Why are they here: Pt was a direct admit from [facility] she arrived on a stretcher in restraints. She sustained major multiple fractures including spinal fractures, rib fractures, manubrium, sacral, pelvic, and R femur fractures, a pneumothorax and possible right peroneal nerve palsy after attempting suicide by jumping off a freeway overpass in February. After being in the hospital and going to a rehabilitation facility she AMA'd and wheeled herself out into the middle of a road. She is NWB RLE and WBAT LLE, she is supposed to wear a right lower leg splint at night. Pt's Hx includes hypertension, lupus, schizoaffective disorder, and autism. Assessment What has happened this shift: Patient observed awake in bed at the beginning of shift. She remains on bed alarm for fall risk precautions. Patient continues to refuse staff to assist her to ambulate to the restroom. Patient briefly complies with call light until she feels her needs are not being met quick enough; she easily becomes irritable, demanding and begins yelling. Patient continues to report excessive pain and exhibits anxious behaviors. Cooperative with medication and PRNs Ativan, Tramadol, [place], Tizanidine, Trazodone x2 and Zofran provided upon request per MD order. She continues to deny SI, HI, A/VH and refuses to accept needing MH assistance. Patient ate HS snack in bed prior to going to sleep; Post repeat Trazodone, [place] and Zofran patient appeared to be sleeping without difficulty. S/I, H/I: Denies A/VH: Denies Sleep: Refer to sleep assessment ADL's: Pt. is on bed alarm for fall precautions and uses a FWW and W/C. Group attendance: NA Were Meds taken: Yes Any med S/E: None observed or reported Mental Status Exam Appearance: Appropriate attire for the unit, hair unkept, malodorous Eye contact: Good Behavior: Laying in bed, gets self to bathroom via walker. Speech: clear, patient yells when she wants something. Mood: Irritable Affect: Labile Thought process: Disorganized Thought Content: Preoccupation with desire to discharge, medication Cognition: A&O X 3 (not to why here) Insight: Poor Judgment: Poor Interventions PRN's used: Tizanidine, Trazodone x2, Ativan, Tramadol, Zofran, [place] Therapeutic interventions: Provided AM assessment with therapeutic communication and active listening, encouraged good hygiene and provided personal hygiene items to clean her self, maintained a safe and supportive environment, medication administration/education/monitoring, limitations, maintained LOS r/t fall precautions, provided redirection as needed, and monitored behavior and need for intervention. Restraints/seclusion/emergency medication: N/A Justification of Continued Inpatient Treatment: Pt. requires interruption of current crisis, medication adjustments, and a safe and supportive environment.
[2020-05-22 08:00] VITALS: BP 142/67
[2020-05-22] MEDS: nystatin 15 GM powder TP SCH ×2 (08:00→18:09)
[2020-05-22] MEDS: LIDOcaine 5% patch TP SCH (08:00)
[2020-05-22] MEDS: docusate sod 100mg capsule PO SCH ×2 (08:37→20:22)
[2020-05-22] MEDS: guanFACINE 1 mg tablet PO SCH ×2 (08:38→20:22)
[2020-05-22] MEDS: aspirin 325mg tablet PO SCH (08:38)
[2020-05-22] MEDS: OLANZAPINE 5 MG TABLET PO SCH (08:38)
[2020-05-22] MEDS: lithium carbonate 150mg capsule PO SCH ×3 (08:38→20:21)
[2020-05-22] MEDS: gabapentin 400mg capsule PO SCH ×3 (08:38→20:21)
[2020-05-22] MEDS: traMADol 50MG tablet PO PRN ×2 (08:39→18:14)
[2020-05-22] MEDS: LORazepam 1 MG tablet PO PRN ×2 (08:43→20:21)
--- NOTE | 2020-05-22 09:06 | NUR ---
Left message with Blaise (ph# [phone]), Nuno's case specialist, to ask him to call her. Left message. He has asked that she not be given his phone # as he does not give it out to clients. FRANCK Matias
[2020-05-22] MEDS ORDERED: polyethylene glycol 3350 17gm powd pack PO SCH (09:15)
--- NOTE | 2020-05-22 09:18 | NUR ---
Nursing Note: Per records, pt. has not had a BM since 05/17/20, bowl sounds are hypoactive, however pt. reports she is passing flatus. Pt. is refusing to take MOM. Dr. Curran made aware, obtained new order for daily Miralax and to add power pudding to meals. Will continue to monitor and endorse to Noc shift. Addendum: 05/22/20 at 1017 by Shefali Paul RN Per chart, pt. is already receiving Miralax Q HS, Dr. Curran made aware and received new order for scheduled Sennosides Tablet 8.6mg daily X3 days. Per Dr. Curran, may leave PRN Sennosides order in place at this time.
[2020-05-22] MEDS ORDERED: polyethylene glycol 3350 17gm powd pack PO ONE (09:35)
--- NOTE | 2020-05-22 10:06 | NUR ---
Reassessment: Pt PO 75-100% avg regular meals meeting needs. Last BM 05/17, physical assessment states constipation, receiving HS miralax, colace, prn senna and milk of magnesia. No nutrition concerns at this time. Will continue to monitor. Rec: 1. continue regular diet 2. routine bowel care 3. wt per rx Addendum: 05/22/20 at [address] Amended: Links added.
[2020-05-22] MEDS: tizanidine 4mg tablet PO PRN ×2 (12:43→20:22)
[2020-05-22] MEDS: sennosides 8.6mg tablet PO SCH (12:43)
[2020-05-22] MEDS: HYDROcodone/acetaminophen 5mg/325mg tablet PO PRN ×2 (12:54→20:21)
--- NOTE | 2020-05-22 13:19 | NUR ---
1:1 with Nuno Nuno reported she spoke to her correctional case manager, Blaise, and they discussed places for her to go upon discharge. She asked if there are other rehabs she could go to. Informed her that they will likely want to see that she is being compliant and consistent with PT. She reported she feels a little better with her recent medication changes. Affect was brighter and she was friendly today. FRANCK Matias
--- NOTE | 2020-05-22 16:04 | NUR ---
Nursing Progress Note: Legal hold: 5270 Client on voluntary/involuntary status for GD/DTS Report received from nurse with use of SBAR: FABRIZIO Putnam Why are they here: Pt was a [facility] she arrived on a stretcher in restraints. She sustained major multiple fractures including spinal fractures, rib fractures, manubrium, sacral, pelvic, and R femur fractures, a pneumothorax and possible right peroneal nerve palsy after attempting suicide by jumping off a freeway overpass in February. After being in the hospital and going to a rehabilitation facility she AMA'd and wheeled herself out into the middle of a road. She is NWB RLE and WBAT LLE, she is supposed to wear a right lower leg splint at night. Pt's Hx includes hypertension, lupus, schizoaffective disorder, and autism. Assessment What has happened this shift: Received pt. sleeping in bed at the beginning of the shift, she awoke and ate breakfast in her room. Pt. continues to use a FWW and W/C, refuses assistance and is non-compliant with NWB orders. Fall precautions are in place and bed alarm is in use. Pt. is reminded to use the call light when needing to transfer, and she is compliant with this some, but not all of the time. 1:1 completed at bedside, pt. continues minimize any MH s/s, but does present with internal preoccupation at times AEB distraction and talking aloud to herself while in her room. Pt. also admits to some depression and anxiety r/t chronic pain and her desire to discharge. PRN Ultram and [place] during the day upon request with effectiveness. Pt. continues to make some delusional statements regarding her belief that she feels that she should be on a medical floor instead of a MH floor, and her belief that the physical therapy she is receiving here is not right for her. Pt. again participates half-heartedly in physical therapy exercises given to her by by Elizabeth with this repairer typewriter. No agitated outbursts or tearful episodes were exhibited by pt. this shift. S/I, H/I: Denies A/VH: Denies, however presents with internal preoccupation AEB distraction and is observed to be talking aloud to herself at times Sleep: Sleep hours are 7.75, pt. naps intermittently throughout the shift ADL's: Pt. remains a fall risk and uses a FWW and W/C, she continues to be NWB to RLE and WBAT to LLE. Pt. continues to be non-compliant with NWB orders. Group attendance: No Were meds taken: Yes Any med S/E: None Mental Status Exam Appearance: Hair disheveled r/t laying in bed, however appropriately dressed Eye contact: Fair Behavior: Cooperative, fatigued, anxious, restless, guarded, and withdrawn Speech: WNL Mood: Guarded, however pleasant Affect: Constricted Thought process: Poverty of thought Thought Content: Preoccupation with desire to discharge, possible A/V/DARLING and paranoid delusions Cognition: A&O X 3 (not to why here) Insight: Poor Judgment: Poor Interventions PRN's used: Ultram, [place], and Ativan Therapeutic interventions: Maintained a safe and supportive environment, ensured contract for safety, provided clear and simple instructions, encouraged compliance with physical/weight bearing limitations, maintained fall precautions, provided redirection as needed, monitored behavior and need for intervention, provided active listening and positive encouragement, guided pt. in preforming recommended P.T. exercises, and maintained Q 15min safety checks. Restraints/seclusion/emergency medication: N/A Justification of Continued Inpatient Treatment: Pt. continues to require titration of medications and a safe and supportive environment. Addendum: 05/22/20 at 1729 by Shefali Paul RN Pt. allowed staff to assist her with a shower, afterward ordered Nystatin powder applied to reddened area on side of left breast. Will endorse to Noc shift and continue to monitor.
[2020-05-22 19:32] VITALS: BP 136/69
[2020-05-22] MEDS: polyethylene glycol 3350 17gm powd pack PO SCH (20:20)
[2020-05-22] MEDS: lurasidone 20mg tablet PO SCH (20:21)
[2020-05-22] MEDS: olanzapine 10mg tablet PO SCH (20:22)
[2020-05-22] MEDS: traZODone 50mg tablet PO PRN (20:22)
--- NOTE | 2020-05-23 04:03 | NUR ---
Nursing Progress Note: Legal hold: 5270 Client on involuntary status for GD/DTS Report received from nurse Jef RN with use of SBAR Why are they here: Pt was a direct admit from [facility] she arrived on a stretcher in restraints. She sustained major multiple fractures including spinal fractures, rib fractures, manubrium, sacral, pelvic, and R femur fractures, a pneumothorax and possible right peroneal nerve palsy after attempting suicide by jumping off a freeway overpass in February. After being in the hospital and going to a rehabilitation facility she AMA'd and wheeled herself out into the middle of a road. She is NWB RLE and WBAT LLE, she is supposed to wear a right lower leg splint at night. Pt's Hx includes hypertension, lupus, schizoaffective disorder, and autism. Assessment What has happened this shift: Patient laying in bed awake at the beginning of shift. She continues to use call light when needing assistance this shift. Patient remains on bed alarm at this time for safety/fall precaution. Patient denies SI, HI, A/VH; does not appear to be responding to IS this shift and continues to express denial for MH needs. Patient pleasant and cooperative with care; compliant with all medication. PRN Tizanidine, Trazodone, Brenton and Ativan provided upon request. No outbursts or aggression toward staff this shift. Patient ate HS snack in her room prior to bed. Observed sleeping and does not appear to be having difficulty. S/I, H/I: Denies A/VH: Denies Sleep: Refer to sleep assessment ADL's: Pt. is on bed alarm for fall precautions and uses a FWW and W/C. Group attendance: NA Were Meds taken: Yes Any med S/E: None observed or reported Mental Status Exam Appearance: Appropriate attire for the unit, hair unkept, malodorous Eye contact: Good Behavior: Laying in bed, gets self to bathroom via walker. Speech: clear, audible Mood: Pleasant Affect: Depressed Thought process: Disorganized Thought Content: Preoccupation with desire to discharge, medication Cognition: A&O X 3 (not to why here) Insight: Poor Judgment: Poor Interventions PRN's used: Tizanidine, Trazodone, Ativan, Brenton Therapeutic interventions: Provided AM assessment with therapeutic communication and active listening, encouraged good hygiene and provided personal hygiene items to clean her self, maintained a safe and supportive environment, medication administration/education/monitoring, limitations, maintained LOS r/t fall precautions, provided redirection as needed, and monitored behavior and need for intervention. Restraints/seclusion/emergency medication: N/A Justification of Continued Inpatient Treatment: Pt. requires interruption of current crisis, medication adjustments, and a safe and supportive environment.
[2020-05-23 07:00] VITALS: BP 122/68
[2020-05-23] MEDS: sennosides 8.6mg tablet PO SCH (08:00)
[2020-05-23] MEDS ORDERED: OLANZAPINE 5 MG TABLET PO SCH (08:00)
[2020-05-23] MEDS: tizanidine 4mg tablet PO PRN (08:22)
[2020-05-23] MEDS: lithium carbonate 150mg capsule PO SCH ×3 (08:22→20:32)
[2020-05-23] MEDS: docusate sod 100mg capsule PO SCH ×2 (08:23→20:34)
[2020-05-23] MEDS: guanFACINE 1 mg tablet PO SCH ×2 (08:24→20:36)
[2020-05-23] MEDS: traMADol 50MG tablet PO PRN ×2 (08:24→17:50)
[2020-05-23] MEDS: NICOTINE POLACRILEX 2 MG LOZENGE BC PRN ×4 (08:24→20:42)
[2020-05-23] MEDS: LIDOcaine 5% patch TP SCH (08:25)
[2020-05-23] MEDS: gabapentin 400mg capsule PO SCH ×4 (08:31→20:34)
[2020-05-23] MEDS: aspirin 325mg tablet PO SCH (08:31)
[2020-05-23] MEDS: nystatin 15 GM powder TP SCH ×2 (08:56→20:00)
[2020-05-23] MEDS ORDERED: magnesium citrate 296ml oral solution PO ONE (09:00)
[2020-05-23] MEDS: ibuprofen 200mg tablet PO PRN (10:09)
[2020-05-23] MEDS: HYDROcodone/acetaminophen 5mg/325mg tablet PO PRN ×2 (10:09→20:39)
[2020-05-23] MEDS: LORazepam 1 MG tablet PO PRN ×2 (13:35→20:39)
--- NOTE | 2020-05-23 17:40 | NUR ---
Nursing Progress Note: Legal hold: 5270 Client on involuntary status for GD/DTS Report received from nurse with use of SBAR: FABRIZIO Putnam Why are they here: [facility] she arrived on a stretcher in restraints. She sustained major multiple fractures including spinal fractures, rib fractures, manubrium, sacral, pelvic, and R femur fractures, a pneumothorax and possible right peroneal nerve palsy after attempting suicide by jumping off a freeway overpass in February. After being in the hospital and going to a rehabilitation facility she AMA'd and wheeled herself out into the middle of a road. She is NWB RLE and WBAT LLE, she is supposed to wear a right lower leg splint at night. Pt's Hx includes hypertension, lupus, schizoaffective disorder, and autism. Assessment What has happened this shift: Received pt sleeping in bed at shift change. Patient awakens for breakfast and eats in her room due to pain with ambulation. Patient takes medications without incident. Patient was given Mag Citrate for constipation, but has had no BM at this point. Patient states that she talks to herself sometimes, but denies any hallucinations. Patient denies SI. Physical therapy came and did exercises with patient. S/I, H/I: Denies A/VH: Denies Sleep: Sleep hours are 8.75 hrs NOC, pt. naps intermittently throughout the shift ADL's: Pt. remains a fall risk and uses a FWW and W/C, she continues to be NWB to RLE and WBAT to LLE. Pt. continues to be non-compliant with NWB orders. Group attendance: No Were meds taken: Yes Any med S/E: None Mental Status Exam Appearance: Clean and neat, hair disheveled wearing unit attire. Eye contact: Fair Behavior: Cooperative, fatigued, anxious, restless, guarded, and withdrawn Speech: WNL Mood: Depressed related to pain. Affect: Constricted Thought process: Poverty of thought Thought Content: Pain medications, snacks and meals, discharge. Cognition: A&O X 3 (not to why here) Insight: Poor Judgment: Poor Interventions PRN's used: Ultram, [place], and Ativan, Zanaflex Therapeutic interventions: Maintained a safe and supportive environment, ensured contract for safety, provided clear and simple instructions, encouraged compliance with physical/weight bearing limitations, maintained fall precautions, provided redirection as needed, monitored behavior and need for intervention, provided active listening and positive encouragement, guided pt. in preforming recommended P.T. exercises, and maintained Q 15min safety checks. Restraints/seclusion/emergency medication: N/A Justification of Continued Inpatient Treatment: Pt. continues to require titration of medications and a safe and supportive environment.
[2020-05-23] MEDS: lurasidone 20mg tablet PO SCH (17:54)
[2020-05-23 19:19] LABS: ALBUMIN 2.9 G/DL (3.4-5.0); ANION GAP 10 (8-16); BLOOD UREA NITROGEN 11 MG/DL (7-18); BUN/CREATININE RATIO 15.1 (6.6-38.0); CHLORIDE 103 MMOL/L (99-107); CREATININE 0.73 MG/DL (0.40-0.90); GLUCOSE 127 MG/DL (70-104); POTASSIUM 3.6 MMOL/L (3.5-5.1); SODIUM 138 MMOL/L (135-145); TOTAL CARBON DIOXIDE 25.4 MMOL/L (24-32); eGFR > 90 ML/MIN
[2020-05-23] MEDS: polyethylene glycol 3350 17gm powd pack PO SCH (20:35)
[2020-05-23] MEDS: olanzapine 10mg tablet PO SCH (20:35)
[2020-05-23] MEDS: traZODone 50mg tablet PO PRN (20:42)
--- NOTE | 2020-05-23 22:59 | NUR ---
Nursing Progress Note: Legal hold: 5270 Client on involuntary status for GD/DTS Report received from nurse Carmelo RN with use of SBAR Why are they here: Pt was a direct admit from [facility] she arrived on a stretcher in restraints. She sustained major multiple fractures including spinal fractures, rib fractures, manubrium, sacral, pelvic, and R femur fractures, a pneumothorax and possible right peroneal nerve palsy after attempting suicide by jumping off a freeway overpass in February. After being in the hospital and going to a rehabilitation facility she AMA'd and wheeled herself out into the middle of a road. She is NWB RLE and WBAT LLE, she is supposed to wear a right lower leg splint at night. Pt's Hx includes hypertension, lupus, schizoaffective disorder, and autism. Assessment What has happened this shift: Pt is cooperative with HS medications and removal of Lidoderm patch but still refuses vital signs and physical assessment. Pt requests a "peanut butter and [place] sandwich" for snack, staff gives her peanut butter and jelly which she accepts. She denies HI/SI/AH/VH at this time. She remains isolative in her room for the entirety of the shift but is polite in interactions with staff. She utilizes trazodone, norco, and ativan PRNs S/I, H/I: Denies A/VH: Denies Sleep: Refer to sleep assessment ADL's: Pt. is on bed alarm for fall precautions and uses a FWW and W/C. Group attendance: NA Were Meds taken: Yes Any med S/E: None observed or reported Mental Status Exam Appearance: Appropriate attire for the unit, hair unkept, declines brushing Eye contact: Good Behavior: Laying in bed, gets self to bathroom via walker. Speech: clear, audible Mood: Pleasant Affect: Depressed Thought process: Disorganized Thought Content: Preoccupation with desire to discharge, medication Cognition: A&O X 3 (not to why here) Insight: Poor Judgment: Poor Interventions PRN's used: Trazodone, Ativan, [place] Therapeutic interventions: Provided AM assessment with therapeutic communication and active listening, encouraged good hygiene and provided personal hygiene items to clean her self, maintained a safe and supportive environment, medication administration/education/monitoring, limitations, maintained LOS r/t fall precautions, provided redirection as needed, and monitored behavior and need for intervention. Restraints/seclusion/emergency medication: N/A Justification of Continued Inpatient Treatment: Pt. requires interruption of current crisis, medication adjustments, and a safe and supportive environment.
[2020-05-24 07:36] VITALS: BP 119/60
[2020-05-24] MEDS: nystatin 15 GM powder TP SCH ×2 (08:05→20:00)
[2020-05-24] MEDS: lithium carbonate 150mg capsule PO SCH ×3 (08:11→19:43)
[2020-05-24] MEDS: gabapentin 400mg capsule PO SCH ×4 (08:11→19:42)
[2020-05-24] MEDS: magnesium hydroxide 30ml (MOM) UD suspension PO PRN (08:12)
[2020-05-24] MEDS: docusate sod 100mg capsule PO SCH ×2 (08:12→19:41)
[2020-05-24] MEDS: sennosides 8.6mg tablet PO SCH (08:12)
[2020-05-24] MEDS: ibuprofen 200mg tablet PO PRN (08:12)
[2020-05-24] MEDS: guanFACINE 1 mg tablet PO SCH ×2 (08:12→19:41)
[2020-05-24] MEDS: LIDOcaine 5% patch TP SCH (08:18)
[2020-05-24] MEDS: traMADol 50MG tablet PO PRN ×2 (08:21→16:16)
[2020-05-24] MEDS: aspirin 325mg tablet PO SCH (08:46)
[2020-05-24] MEDS: NICOTINE POLACRILEX 2 MG LOZENGE BC PRN ×4 (08:46→19:45)
[2020-05-24] MEDS ORDERED: glycerin ADULT rectal suppository RC ONE (09:50)
[2020-05-24] MEDS ORDERED: bisacodyl 10mg suppository rectal RC STA (10:16)
[2020-05-24] MEDS: HYDROcodone/acetaminophen 5mg/325mg tablet PO PRN ×2 (10:49→19:44)
--- NOTE | 2020-05-24 16:47 | NUR ---
Nursing Progress Note: Legal hold: 5270 Client on involuntary status for GD/DTS Report received from nurse Indy RN with use of SBAR Why are they here: [facility] she arrived on a stretcher in restraints. She sustained major multiple fractures including spinal fractures, rib fractures, manubrium, sacral, pelvic, and R femur fractures, a pneumothorax and possible right peroneal nerve palsy after attempting suicide by jumping off a freeway overpass in February. After being in the hospital and going to a rehabilitation facility she AMA'd and wheeled herself out into the middle of a road. She is NWB RLE and WBAT LLE, she is supposed to wear a right lower leg splint at night. Pt's Hx includes hypertension, lupus, schizoaffective disorder, and autism. Assessment What has happened this shift: Pt rated her depression today at a 6/10. Pt stated she is depressed because she has been an inpatient for so long. Discussed pt getting up in the w/c and coming to the dining room for meals. Explained that this will help get the ball rolling for her discharge. Pt was receptive to this and agreed to do so for lunch. She denied SI/HI/AH/VH. Pt was medicated for pain with PRN Motrin 600 mg at 0812, tramadol 100 mg @ 0821 & 1616, and [place] 5/325 mg @ 1049. Pt was given MOM for constipation this morning. Bowel sound were hypoactive and pt had not had a bowel movement since 05/17/20. Obtained an order for a Bisacodyl suppository which was given at 1040 with good effect. Pt had an X-Large BM in the afternoon. Hospitalist Dr Ayala came and saw the pt and ordered Relistor 12 mg subcut every other day. Pt's senna was D/c'd. Pt did get up in the w/c and eat lunch in the dining room. Pt asked this RN to help her apply her left lower extremity/foot splint after lunch. Pt states she tries to wear it for awhile each day while in bed as it is uncomfortable and wakes her up if she uses it at night. Will encourage pt to get up in w/c and eat dinner in the dining room for dinner. S/I, H/I: Pt denies A/VH: Pt denies Sleep: Pt slept 8.25 hours last night per noc shift report. ADL's: Pt. is on bed alarm for fall precautions and uses a FWW and W/C. Group attendance: No Were Meds taken: Yes Any med S/E: None noted or reported Mental Status Exam Appearance: Heavy set woman with dark hair dressed in green hospital scrubs. Eye contact: Good Behavior: Pleasant, cooperative Speech: clear, audible, normal rate and rhythm. Mood: Depressed Affect: Blunted Thought process: Linear Thought Content: She is depressed because she is tired of being an inpatient. Cognition: A/O X 3 some reality distortion as to situation. Insight: Poor to fair Judgment: Poor to fair Interventions PRN's used: Tramadol 50 mg X 2, Motrin 600 mg, [place] 5/325 mg, MOM Therapeutic interventions: 1:1 assessment, therapeutic conversation, active listening, ensured contract for safety, fall prevention, constipation management, pain management, medication administration/education/monitoring, encourage pt to get up in w/c and come to the dining room for meals, encouragement of personal hygiene, provided encouragement and positive reinforcement, Q 15 minute safety checks. Restraints/seclusion/emergency medication: N/A Justification of Continued Inpatient Treatment: Pt. requires interruption of current crisis, medication adjustments, and a safe and supportive environment. Addendum: 05/25/20 at 1626 by Rachael Ahuja RN (Lee) Pt got up in w/c and wheeled herself to the dining room for dinner.
[2020-05-24] MEDS: lurasidone 20mg tablet PO SCH (17:42)
[2020-05-24] MEDS: LORazepam 1 MG tablet PO PRN (19:42)
[2020-05-24] MEDS: traZODone 50mg tablet PO PRN (19:44)
[2020-05-24] MEDS: polyethylene glycol 3350 17gm powd pack PO SCH (19:46)
[2020-05-24 20:00] VITALS: BP 130/68
[2020-05-24] MEDS: OLANZAPINE 5 MG TABLET PO SCH (21:00)
--- NOTE | 2020-05-25 01:33 | NUR ---
Nursing Progress Note: Legal hold: 5270 Client on involuntary status for GD/DTS Report received from nurse Nelia RN with use of SBAR Why are they here: Pt was a [facility] she arrived on a stretcher in restraints. She sustained major multiple fractures including spinal fractures, rib fractures, manubrium, sacral, pelvic, and R femur fractures, a pneumothorax and possible right peroneal nerve palsy after attempting suicide by jumping off a freeway overpass in February. After being in the hospital and going to a rehabilitation facility she AMA'd and wheeled herself out into the middle of a road. She is NWB RLE and WBAT LLE, she is supposed to wear a right lower leg splint at night. Pt's Hx includes hypertension, lupus, schizoaffective disorder, and autism. Assessment What has happened this shift: Pt remains isolative in her room for the entirety of the shift mainly sleeping. She is woken up easily, and allows vital signs and assessment this shift. She is polite and pleasant with staff. She denies HI/SI/AH/VH at this time. She is not very talkative but will answer yes and no questions. She reports having 9/10 pain, medications given. She utilizes trazodone, norco, nicotine and ativan PRNs. Pt sleeps soundly, wakes up around 0030 requesting "more pain medication" but falls asleep and is snoring loudly by the time policy writer sales comes back. S/I, H/I: Denies A/VH: Denies Sleep: Refer to sleep assessment ADL's: Pt. is on bed alarm for fall precautions and uses a FWW and W/C. Group attendance: NA Were Meds taken: Yes Any med S/E: None observed or reported Mental Status Exam Appearance: Appropriate attire for the unit, hair unkept, declines brushing Eye contact: Good Behavior: Laying in bed, gets self to bathroom via walker. Speech: clear, audible Mood: Pleasant Affect: Depressed Thought process: Disorganized Thought Content: Preoccupation with desire to discharge, medication Cognition: A&O X 3 (not to why here) Insight: Poor Judgment: Poor Interventions PRN's used: Trazodone, Ativan, [place], nicotine Therapeutic interventions: Provided AM assessment with therapeutic communication and active listening, encouraged good hygiene and provided personal hygiene items to clean her self, maintained a safe and supportive environment, medication administration/education/monitoring, limitations, maintained LOS r/t fall precautions, provided redirection as needed, and monitored behavior and need for intervention. Restraints/seclusion/emergency medication: N/A Justification of Continued Inpatient Treatment: Pt. requires interruption of current crisis, medication adjustments, and a safe and supportive environment.
[2020-05-25] MEDS: gabapentin 400mg capsule PO SCH ×4 (07:24→20:25)
[2020-05-25] MEDS: guanFACINE 1 mg tablet PO SCH ×2 (07:24→20:28)
[2020-05-25] MEDS: docusate sod 100mg capsule PO SCH ×2 (07:24→20:25)
[2020-05-25] MEDS: lithium carbonate 150mg capsule PO SCH ×3 (07:24→20:26)
[2020-05-25] MEDS: ibuprofen 200mg tablet PO PRN (07:24)
[2020-05-25] MEDS: traMADol 50MG tablet PO PRN ×2 (07:25→14:28)
[2020-05-25] MEDS: nystatin 15 GM powder TP SCH ×2 (07:26→20:43)
[2020-05-25] MEDS: LIDOcaine 5% patch TP SCH (07:28)
[2020-05-25] MEDS: NICOTINE POLACRILEX 2 MG LOZENGE BC PRN ×3 (07:31→20:27)
[2020-05-25] MEDS: aspirin 325mg tablet PO SCH (07:36)
[2020-05-25 07:45] VITALS: BP 151/83
[2020-05-25] MEDS: HYDROcodone/acetaminophen 5mg/325mg tablet PO PRN ×2 (12:12→20:27)
--- NOTE | 2020-05-25 16:26 | NUR ---
Nursing Progress Note: Legal hold: 5270 Client on involuntary status for GD/DTS Report received from nurse Ceilna Marquez RN with use of SBAR Why are they here: [facility] she arrived on a stretcher in restraints. She sustained major multiple fractures including spinal fractures, rib fractures, manubrium, sacral, pelvic, and R femur fractures, a pneumothorax and possible right peroneal nerve palsy after attempting suicide by jumping off a freeway overpass in February. After being in the hospital and going to a rehabilitation facility she AMA'd and wheeled herself out into the middle of a road. She is NWB RLE and WBAT LLE, she is supposed to wear a right lower leg splint at night. Pt's Hx includes hypertension, lupus, schizoaffective disorder, and autism. Assessment What has happened this shift: Pt continues to feel depressed today that she has been in the hospital for so long, "and I know it will be a long time before I get to go home." Reiterated with pt the importance of getting out of bed and into w/c for meals to facilitate getting the ball rolling for the next step in her recovery; being discharged from here. Pt expressed understanding and was cooperative with eating breakfast today in the dining room. Pt was medicated with PRN Motrin 600 mg at 0724 and requested prn tramadol 100 mg at 0725 and 1428. Pt reported her pain still being at a 7/10 around 1100, offered PRN [place] but pt declined though agreed to take it a little closer to lunchtime. Pt requested this RN assist her to apply her right foot splint. PRN [place] was given at 1212 ,it seemed to make pt sleepy and she refused to get up for lunch and refused lunch all together. Physical therapy came to do exercises with pt around 1500 using bands and dumbbells. Pt was cooperative. PT discussed having nursing do exercises with the patient daily. Therapy reported that if [facility] staff was unable to find time to do exercises with the patient then they would no longer be able to see her periodically as the patient is not acute and really needs more outpatient style physical therapy. Will continue to encourage pt to get up and to the dining room for meals. S/I, H/I: Pt denies A/VH: Pt denies Sleep: Pt slept 6.25 hours last night per sleep assessment ADL's: Pt. is on bed alarm for fall precautions and uses a FWW and W/C. Group attendance: No Were Meds taken: Yes Any med S/E: None noted or reported Mental Status Exam Appearance: Heavy set woman with dark hair dressed in green hospital scrubs. Eye contact: Good Behavior: Pleasant, cooperative Speech: clear, audible, normal rate and rhythm. Mood: Depressed Affect: Blunted Thought process: Linear Thought Content: She is depressed because she is tired of being an inpatient. Cognition: A/O X 3 some reality distortion as to situation. Insight: Poor to fair Judgment: Poor to fair Interventions PRN's used: Tramadol 50 mg X 2, Motrin 600 mg, [place] 5/325 mg, nicotine lozenges Therapeutic interventions: 1:1 assessment, therapeutic conversation, active listening, ensured contract for safety, fall prevention, constipation management, pain management, medication administration/education/monitoring, encourage pt to get up in w/c and come to the dining room for meals, encouragement of personal hygiene, provided encouragement and positive reinforcement, Q 15 minute safety checks. Restraints/seclusion/emergency medication: N/A Justification of Continued Inpatient Treatment: Pt requires pain management and encouragement to get up and move around, she seems to be at her baseline for mental health. Awaiting for an acceptance/transfer back to her county/rehab hospital.
[2020-05-25] MEDS: lurasidone 20mg tablet PO SCH (17:54)
[2020-05-25 19:00] VITALS: BP 105/62
[2020-05-25] MEDS: OLANZAPINE 5 MG TABLET PO SCH (20:25)
[2020-05-25] MEDS: traZODone 50mg tablet PO PRN (20:27)
[2020-05-25] MEDS: ondansetron 4mg rapidly disintigrating tab PO PRN (20:27)
[2020-05-25] MEDS: polyethylene glycol 3350 17gm powd pack PO SCH (20:28)
--- NOTE | 2020-05-25 23:46 | NUR ---
Nursing Progress Note: Legal hold: 5270 Client on involuntary status for GD/DTS Report received from nurse Nelia RN with use of SBAR Why are they here: Pt was a direct admit from [facility] she arrived on a stretcher in restraints. She sustained major multiple fractures including spinal fractures, rib fractures, manubrium, sacral, pelvic, and R femur fractures, a pneumothorax and possible right peroneal nerve palsy after attempting suicide by jumping off a freeway overpass in February. After being in the hospital and going to a rehabilitation facility she AMA'd and wheeled herself out into the middle of a road. She is NWB RLE and WBAT LLE, she is supposed to wear a right lower leg splint at night. Pt's Hx includes hypertension, lupus, schizoaffective disorder, and autism. Assessment What has happened this shift: Pt remains in bed this shift, technical writer and editor asks if for snack time she would like to go to the community room but she declines. She states that on day shift staff has been having her get up to go to meals but she does not like this and would much rather stay in her room. When asked about physical therapy she says she enjoys doing it and thinks it is going well. She is polite and pleasant with technical writer and editor. She denies HI/SI/AH/VH at this time. She reports having 9/10 pain, medications given. She utilizes trazodone, norco, nicotine PRNs. S/I, H/I: Denies A/VH: Denies Sleep: Refer to sleep assessment ADL's: Pt. is on bed alarm for fall precautions and uses a FWW and W/C. Group attendance: NA Were Meds taken: Yes Any med S/E: None observed or reported Mental Status Exam Appearance: Appropriate attire for the unit, hair unkept, declines brushing Eye contact: Good Behavior: Laying in bed, gets self to bathroom via walker. Speech: clear, audible Mood: Pleasant Affect: Depressed Thought process: Disorganized Thought Content: Preoccupation with desire to discharge, medication Cognition: A&O X 3 (not to why here) Insight: Poor Judgment: Poor Interventions PRN's used: Trazodone, [place], nicotine Therapeutic interventions: Provided AM assessment with therapeutic communication and active listening, encouraged good hygiene and provided personal hygiene items to clean her self, maintained a safe and supportive environment, medication administration/education/monitoring, limitations, maintained LOS r/t fall precautions, provided redirection as needed, and monitored behavior and need for intervention. Restraints/seclusion/emergency medication: N/A Justification of Continued Inpatient Treatment: Pt. requires interruption of current crisis, medication adjustments, and a safe and supportive environment.
[2020-05-26] MEDS: LORazepam 1 MG tablet PO PRN ×2 (07:04→21:22)
[2020-05-26] MEDS: traMADol 50MG tablet PO PRN ×2 (07:04→14:08)
[2020-05-26 07:50] VITALS: BP 124/58
[2020-05-26] MEDS: LIDOcaine 5% patch TP SCH (08:36)
[2020-05-26] MEDS: aspirin 325mg tablet PO SCH (08:37)
[2020-05-26] MEDS: guanFACINE 1 mg tablet PO SCH ×2 (08:37→21:17)
[2020-05-26] MEDS: docusate sod 100mg capsule PO SCH ×2 (08:38→21:17)
[2020-05-26] MEDS: lithium carbonate 150mg capsule PO SCH ×3 (08:38→21:18)
[2020-05-26] MEDS: gabapentin 400mg capsule PO SCH ×4 (08:38→21:17)
[2020-05-26] MEDS: methylnaltrexone br 12mg/0.6ml inj***SubQ only SQ SCH (08:39)
[2020-05-26] MEDS: nystatin 15 GM powder TP SCH ×2 (08:48→20:00)
[2020-05-26] MEDS: HYDROcodone/acetaminophen 5mg/325mg tablet PO PRN ×2 (09:11→21:16)
[2020-05-26] MEDS: NICOTINE POLACRILEX 2 MG LOZENGE BC PRN ×2 (09:11→14:08)
--- NOTE | 2020-05-26 17:19 | NUR ---
Nursing Progress Note: Legal hold: 5270 Client on involuntary status for GD/DTS Report received from nurse Celina Marquez RN with use of SBAR Why are they here: [facility] she arrived on a stretcher in restraints. She sustained major multiple fractures including spinal fractures, rib fractures, manubrium, sacral, pelvic, and R femur fractures, a pneumothorax and possible right peroneal nerve palsy after attempting suicide by jumping off a freeway overpass in February. After being in the hospital and going to a rehabilitation facility she AMA'd and wheeled herself out into the middle of a road. She is NWB RLE and WBAT LLE, she is supposed to wear a right lower leg splint at night. Pt's Hx includes hypertension, lupus, schizoaffective disorder, and autism. Assessment What has happened this shift: Pt is pleasant and cooperative throughout the day. She showered and ate her meals and snacks in the community room. Pt has slept on and off throughout the shift. S/I, H/I: Pt denies A/VH: Pt denies Sleep: Naps on and off throughout the day ADL's: Pt. is on bed alarm for fall precautions and uses a FWW and W/C. Group attendance: No Were Meds taken: Yes Any med S/E: None noted or reported Mental Status Exam Appearance: Heavy set woman with dark hair dressed in personal clothing Eye contact: Good Behavior: Pleasant, cooperative Speech: clear, audible, normal rate and rhythm. Mood: States she is bored Affect: Blunted Thought process: Linear Thought Content: She is depressed because she is tired of being an inpatient. Cognition: A/O X 3 some reality distortion as to situation. Insight: Poor to fair Judgment: Poor to fair Interventions PRN's used: Tramadol 50 mg X 2, Motrin 600 mg, [place] 5/325 mg, nicotine lozenges Therapeutic interventions: Cleaned and sanitized her room due to stool all over the toilet and chair and her linens, and trash all over her floor, provided therapeutic communication encouraging her to put her trash in the garbage and to keep her room neat and clean, encouraged self-respect, provided active listening, pain management, medication administration/education/monitoring, encourage pt to get up in w/c and come to the dining room for meals, encouragement of personal hygiene, provided encouragement and positive reinforcement, Q 15 minute safety checks. Restraints/seclusion/emergency medication: N/A Justification of Continued Inpatient Treatment: Pt requires pain management and encouragement to get up and move around, she seems to be at her baseline for mental health. Awaiting for an acceptance/transfer back to her county/rehab hospital.
[2020-05-26] MEDS: lurasidone 20mg tablet PO SCH (17:37)
[2020-05-26 19:00] VITALS: BP 117/68
[2020-05-26] MEDS: OLANZAPINE 5 MG TABLET PO SCH (21:15)
[2020-05-26] MEDS: traZODone 50mg tablet PO PRN (21:19)
[2020-05-26] MEDS: ondansetron 4mg rapidly disintigrating tab PO PRN (21:22)
[2020-05-26] MEDS: polyethylene glycol 3350 17gm powd pack PO SCH (21:37)
--- NOTE | 2020-05-27 01:39 | NUR ---
Nursing Progress Note: Legal hold: 5270 Client on involuntary status for GD/DTS Report received from nurse Deandra RN with use of SBAR Why are they here: [facility] she arrived on a stretcher in restraints. She sustained major multiple fractures including spinal fractures, rib fractures, manubrium, sacral, pelvic, and R femur fractures, a pneumothorax and possible right peroneal nerve palsy after attempting suicide by jumping off a freeway overpass in February. After being in the hospital and going to a rehabilitation facility she AMA'd and wheeled herself out into the middle of a road. She is NWB RLE and WBAT LLE, she is supposed to wear a right lower leg splint at night. Pt's Hx includes hypertension, lupus, schizoaffective disorder, and autism. Assessment What has happened this shift: Pt remains isolative in her room for the entirety of the shift mainly sleeping. She skipped snack tonight because she wanted to sleep. PT reports "just being in a lot of pain." She utilizes trazodone, norco, nicotine and ativan PRNs. She states she got up for all of her meals today and did physical therapy. She says she enjoys physical therapy. She reports still feeling depressed but thinks that once she is able to start "getting around better" her mood will start to improve. "Just not being able to walk around like normal is stephon hard." S/I, H/I: Denies A/VH: Denies Sleep: Refer to sleep assessment ADL's: uses a FWW and W/C. Group attendance: NA Were Meds taken: Yes Any med S/E: None observed or reported Mental Status Exam Appearance: Appropriate attire Eye contact: Good Behavior: Laying in bed, gets self to bathroom via walker. Speech: clear, audible Mood: Pleasant Affect: Depressed Thought process: linear Thought Content: WNL Cognition: A&O X 3 (not to why here) Insight: Poor Judgment: Poor Interventions PRN's used: Trazodone, Ativan, [place] Therapeutic interventions: Provided AM assessment with therapeutic communication and active listening, encouraged good hygiene and provided personal hygiene items to clean her self, maintained a safe and supportive environment, medication administration/education/monitoring, limitations, maintained LOS r/t fall precautions, provided redirection as needed, and monitored behavior and need for intervention. Restraints/seclusion/emergency medication: N/A Justification of Continued Inpatient Treatment: Pt. requires interruption of current crisis, medication adjustments, and a safe and supportive environment.
[2020-05-27] MEDS: LORazepam 1 MG tablet PO PRN (03:31)
[2020-05-27] MEDS: traMADol 50MG tablet PO PRN ×4 (03:31→21:35)
[2020-05-27] MEDS: NICOTINE POLACRILEX 2 MG LOZENGE BC PRN ×4 (03:31→21:27)
[2020-05-27 08:00] VITALS: BP 117/68
[2020-05-27] MEDS: nystatin 15 GM powder TP SCH ×2 (08:00→21:19)
[2020-05-27] MEDS: guanFACINE 1 mg tablet PO SCH ×2 (08:05→21:18)
[2020-05-27] MEDS: gabapentin 400mg capsule PO SCH ×4 (08:05→21:19)
[2020-05-27] MEDS: lithium carbonate 150mg capsule PO SCH ×3 (08:06→21:19)
[2020-05-27] MEDS: lactobacillus rhamnosus 10,000 MMU CELLS/CAPSULE PO SCH (08:06)
[2020-05-27] MEDS: docusate sod 100mg capsule PO SCH ×2 (08:07→21:18)
[2020-05-27] MEDS: aspirin 325mg tablet PO SCH (08:07)
[2020-05-27] MEDS: HYDROcodone/acetaminophen 5mg/325mg tablet PO PRN ×2 (08:08→13:36)
[2020-05-27] MEDS: LIDOcaine 5% patch TP SCH (08:09)
--- NOTE | 2020-05-27 16:47 | NUR ---
Nursing Progress Note: Legal hold: 5270 Client on involuntary status for GD/DTS Report received from nurse Celina Marquez RN with use of SBAR Why are they here: [facility] she arrived on a stretcher in restraints. She sustained major multiple fractures including spinal fractures, rib fractures, manubrium, sacral, pelvic, and R femur fractures, a pneumothorax and possible right peroneal nerve palsy after attempting suicide by jumping off a freeway overpass in February. After being in the hospital and going to a rehabilitation facility she AMA'd and wheeled herself out into the middle of a road. She is NWB RLE and WBAT LLE, she is supposed to wear a right lower leg splint at night. Pt's Hx includes hypertension, lupus, schizoaffective disorder, and autism. Assessment What has happened this shift: Patient was asleep at change of shift and up in her wheelchair for breakfast. Patient is pleasant and polite. Patient asks for all her PRN medications as often as she can get them. Patient is depressed because it is taking her a long time to heal. Patient states she is doing physical therapy. Patient wore her splint on her right foot when she got up for meals. Patient denies suicidal/homicidal ideation. Patient denies audio/visual hallucinations. Patient has not verbalized any delusions or exhibited any psychotic behavior. S/I, H/I: Pt denies A/VH: Pt denies Sleep: Naps on and off throughout the day ADL's: Pt. is on bed alarm for fall precautions and uses a FWW and W/C. Group attendance: No groups today Were Meds taken: Yes Any med S/E: None noted or reported Mental Status Exam Appearance: Patient with messy dark hair dressed in personal clothing Eye contact: Good Behavior: Pleasant, cooperative Speech: clear, audible, normal rate and rhythm. Mood: depressed due to her immobility Affect: Flat Thought process: Linear Thought Content: She is depressed because she is tired of being an inpatient. Cognition: A/O X 3 some reality distortion as to situation. Insight: Poor to fair Judgment: Poor to fair Interventions PRN's used: Tramadol 50 mg X 2, Motrin 600 mg, [place] 5/325 mg, nicotine lozenges Therapeutic interventions: RN provided active listening, pain management, medication administration/education/monitoring, encourage pt to get up in w/c and come to the dining room for meals, encouragement of personal hygiene, provided encouragement and positive reinforcement, Q 15 minute safety checks. Restraints/seclusion/emergency medication: N/A Justification of Continued Inpatient Treatment: Pt requires pain management and encouragement to get up and move around, she seems to be at her baseline for mental health. Awaiting for an acceptance/transfer back to her county/rehab hospital.
--- NOTE | 2020-05-27 17:41 | NUR ---
Nursing Progress Note: Addendum. Patient wanted to eat dinner in her room. RN advised patient that document control specialist and her PA, Luna said she needs to come and eat in the dining room. Patient stated then I'm not going to eat. RN told patient okay. First outburst today.
[2020-05-27 19:00] VITALS: BP 130/66
[2020-05-27] MEDS: polyethylene glycol 3350 17gm powd pack PO SCH (21:00)
[2020-05-27] MEDS: OLANZAPINE 5 MG TABLET PO SCH (21:19)
[2020-05-27] MEDS: traZODone 50mg tablet PO PRN (21:31)
--- NOTE | 2020-05-28 02:33 | NUR ---
Nursing Progress Note: Legal hold: 5270 Client on involuntary status for GD/DTS Report received from nurse Deandra RN with use of SBAR Why are they here: Pt was a direct admit from [facility] she arrived on a stretcher in restraints. She sustained major multiple fractures including spinal fractures, rib fractures, manubrium, sacral, pelvic, and R femur fractures, a pneumothorax and possible right peroneal nerve palsy after attempting suicide by jumping off a freeway overpass in February. After being in the hospital and going to a rehabilitation facility she AMA'd and wheeled herself out into the middle of a road. She is NWB RLE and WBAT LLE, she is supposed to wear a right lower leg splint at night. Pt's Hx includes hypertension, lupus, schizoaffective disorder, and autism. Assessment What has happened this shift: Pt in room awake at start of shift. Pt asked if she could eat snack in room. Informed she would have to come to group room to eat. Little bit later pt asked another staff member if she could eat in room. Informed she would have to come to group room. Pt transferred herself independently to W/C and propelled self to group room for snack. Pt pleasant and cooperative. Good eye contact. Took meds at HS. S/I, H/I: Denies A/VH: Denies Sleep: asleep at this time ADL's: uses a FWW and W/C. Group attendance: NA Were Meds taken: Yes Any med S/E: None observed or reported Mental Status Exam Appearance: Appropriate attire Eye contact: Good Behavior: Comes out of room for meals and snack Speech: clear, audible Mood: Pleasant Affect: Depressed Thought process: linear Thought Content: WNL Cognition: A&O X 3 (not to why here) Insight: Poor Judgment: Poor Interventions PRN's used: Trazodone, Tramadol Therapeutic interventions: Provided AM assessment with therapeutic communication and active listening, encouraged good hygiene and provided personal hygiene items to clean her self, maintained a safe and supportive environment, medication administration/education/monitoring, limitations, maintained LOS r/t fall precautions, provided redirection as needed, and monitored behavior and need for intervention. Restraints/seclusion/emergency medication: N/A Justification of Continued Inpatient Treatment: Pt. requires interruption of current crisis, medication adjustments, and a safe and supportive environment.
[2020-05-28 07:24] VITALS: BP 123/76
[2020-05-28] MEDS: LIDOcaine 5% patch TP SCH (07:52)
[2020-05-28] MEDS: NICOTINE POLACRILEX 2 MG LOZENGE BC PRN ×6 (07:53→23:32)
[2020-05-28] MEDS: guanFACINE 1 mg tablet PO SCH ×2 (07:53→20:03)
[2020-05-28] MEDS: aspirin 325mg tablet PO SCH (07:53)
[2020-05-28] MEDS: lithium carbonate 150mg capsule PO SCH ×3 (07:53→20:02)
[2020-05-28] MEDS: lactobacillus rhamnosus 10,000 MMU CELLS/CAPSULE PO SCH (07:54)
[2020-05-28] MEDS: gabapentin 400mg capsule PO SCH ×4 (07:54→20:02)
[2020-05-28] MEDS: HYDROcodone/acetaminophen 5mg/325mg tablet PO PRN ×3 (07:54→21:20)
[2020-05-28] MEDS: nystatin 15 GM powder TP SCH ×2 (08:00→20:03)
[2020-05-28] MEDS: docusate sod 100mg capsule PO SCH ×2 (08:00→20:00)
[2020-05-28] MEDS: traMADol 50MG tablet PO PRN ×3 (08:00→23:32)
[2020-05-28] MEDS: methylnaltrexone br 12mg/0.6ml inj***SubQ only SQ SCH (12:21)
--- NOTE | 2020-05-28 15:25 | NUR ---
[facility] Spoke to Sahil from [facility] (ph# [phone]) and asked if they would re-consider Nuno with updated notes. Faxed updated notes from PT, nursing, and Dr notes along with med list. Informed him that she has been compliant with PT and has improved. Fax# [phone] FRANCK Matias
--- NOTE | 2020-05-28 15:27 | NUR ---
Nursing Progress Note: Legal hold: 5270 Client on involuntary status for GD/DTS Report received from nurse Celina Marquez RN with use of SBAR Why are they here: Pt [facility] she arrived on a stretcher in restraints. She sustained major multiple fractures including spinal fractures, rib fractures, manubrium, sacral, pelvic, and R femur fractures, a pneumothorax and possible right peroneal nerve palsy after attempting suicide by jumping off a freeway overpass in February. After being in the hospital and going to a rehabilitation facility she AMA'd and wheeled herself out into the middle of a road. She is NWB RLE and WBAT LLE, she is supposed to wear a right lower leg splint at night. Pt's Hx includes hypertension, lupus, schizoaffective disorder, and autism. Assessment: What has happened this shift: Patient was asleep at change of shift. RN awoke patient to give her her medication. Patient did not want to eat breakfast so patient just slept. Patient asked RN around 9:30 for a sandwich since she didn't go to breakfast. RN advised patient that she needs to wait for snack at 1000 to eat. Patient was pleasant and said okay. Patient did not get up for snack. Patient got up at lunch. Patient was very nice and polite today. Patient denies suicidal/homicidal ideation. Patient is still very depressed due to her lack of mobility. Patient is wearing her foot brace more often. RN suggested to patient to try the afternoon art therapy group. RN explained it is a really good group and you get to express yourself through art. Patient stated she would consider it and said the [place] is making her very sleepy. Patient asked RN to get her some headphones, which she did. Patient laid in her bed and listened to music. S/I, H/I: Pt denies A/VH: Pt denies Sleep: Naps on and off throughout the day ADL's: Pt. is on bed alarm for fall precautions and uses a FWW and W/C. Group attendance: No Were Meds taken: Yes Any med S/E: None noted or reported Mental Status Exam Appearance: Patient with messy dark hair dressed in personal clothing Eye contact: Good Behavior: Pleasant, cooperative Speech: clear, audible, normal rate and rhythm. Mood: depressed due to her immobility Affect: Flat Thought process: Linear Thought Content: She is depressed because she is tired of being an inpatient and because of her limited mobility. Cognition: A/O X 3 some reality distortion as to situation. Insight: Poor Judgment: Poor Interventions PRN's used: Tramadol 50 mg X 2, [place] 5/325 mg, nicotine lozenges Therapeutic interventions: RN provided active listening, pain management, medication administration/education/monitoring, encourage pt to get up in w/c and come to the dining room for meals, encouragement of personal hygiene, provided encouragement and positive reinforcement, Q 15 minute safety checks. Restraints/seclusion/emergency medication: N/A Justification of Continued Inpatient Treatment: Pt requires pain management and encouragement to get up and move around, she seems to be at her baseline for mental health. Awaiting for an acceptance/transfer back to her county/rehab hospital.
[2020-05-28 19:30] VITALS: BP 116/62
[2020-05-28] MEDS: polyethylene glycol 3350 17gm powd pack PO SCH (20:02)
[2020-05-28] MEDS: OLANZAPINE 5 MG TABLET PO SCH (20:03)
[2020-05-28] MEDS: ondansetron 4mg rapidly disintigrating tab PO PRN (23:32)
[2020-05-29] MEDS: NICOTINE POLACRILEX 2 MG LOZENGE BC PRN ×6 (04:02→21:06)
[2020-05-29] MEDS: LORazepam 1 MG tablet PO PRN ×2 (04:02→12:06)
--- NOTE | 2020-05-29 04:21 | NUR ---
Nursing Progress Note: Legal hold: 5270 Client on involuntary status for GD/DTS Report received from nurse Nelia RN with use of SBAR Why are they here: Pt was a [facility] admit from [facility] she arrived on a stretcher in restraints. She sustained major multiple fractures including spinal fractures, rib fractures, manubrium, sacral, pelvic, and R femur fractures, a pneumothorax and possible right peroneal nerve palsy after attempting suicide by jumping off a freeway overpass in February. After being in the hospital and going to a rehabilitation facility she AMA'd and wheeled herself out into the middle of a road. She is NWB RLE and WBAT LLE, she is supposed to wear a right lower leg splint at night. Pt's Hx includes hypertension, lupus, schizoaffective disorder, and autism. Assessment What has happened this shift: Pt in room awake at start of shift. Pt declined to come to group room and have snack remained in room all shift. Cooperative with care most of the time. One episode of yelling out. When Tech got to room pt denied she had yelled out. Pt denies Hallucinations but appears to be responding to internal stimuli. S/I, H/I: Denies A/VH: Denies Sleep: asleep at this time ADL's: uses a FWW and W/C. Group attendance: NA Were Meds taken: Yes Any med S/E: None observed or reported Mental Status Exam Appearance: Appropriate attire Eye contact: Good Behavior: Comes out of room for meals and snack Speech: clear, audible Mood: Pleasant Affect: Depressed Thought process: linear Thought Content: WNL Cognition: A&O X 3 (not to why here) Insight: Poor Judgment: Poor Interventions PRN's used: Trazodone, Tramadol, [place], nicotine lozenges Therapeutic interventions: Provided AM assessment with therapeutic communication and active listening, encouraged good hygiene and provided personal hygiene items to clean her self, maintained a safe and supportive environment, medication administration/education/monitoring, limitations, maintained LOS r/t fall precautions, provided redirection as needed, and monitored behavior and need for intervention. Restraints/seclusion/emergency medication: N/A Justification of Continued Inpatient Treatment: Pt. requires interruption of current crisis, medication adjustments, and a safe and supportive environment.
[2020-05-29 07:13] VITALS: BP 119/64
[2020-05-29] MEDS: lactobacillus rhamnosus 10,000 MMU CELLS/CAPSULE PO SCH (08:16)
[2020-05-29] MEDS: gabapentin 400mg capsule PO SCH ×4 (08:16→20:53)
[2020-05-29] MEDS: traMADol 50MG tablet PO PRN ×2 (08:16→17:21)
[2020-05-29] MEDS: docusate sod 100mg capsule PO SCH ×2 (08:16→20:56)
[2020-05-29] MEDS: aspirin 325mg tablet PO SCH (08:16)
[2020-05-29] MEDS: guanFACINE 1 mg tablet PO SCH ×2 (08:16→20:56)
[2020-05-29] MEDS: LIDOcaine 5% patch TP SCH (08:17)
[2020-05-29] MEDS: lithium carbonate 150mg capsule PO SCH ×3 (08:17→20:59)
[2020-05-29] MEDS: nystatin 15 GM powder TP SCH ×2 (08:22→20:00)
--- NOTE | 2020-05-29 11:14 | NUR ---
Reassessment: Pt PO 75-100% avg regular meals meeting needs. Last BM 05/26, physical assessment states constipation and large stools, receiving HS miralax, colace, relistor, prn senna and milk of magnesia. No nutrition concerns at this time. Will continue to monitor. Rec: 1. continue regular diet 2. routine bowel care 3. wt per rx Addendum: 05/29/20 at [address] Amended: Links added.
--- NOTE | 2020-05-29 11:18 | NUR ---
DIS[facility]GE PLANNING [facility]ph# [phone]), called to report that the tx team discussed Nuno's case and that in-patient rehab is no longer indicated. He reported that since she is able to transfer to a wheel chair by herself it is not needed. He noted that the rehab environment seemed to be overstimulating for Nuno and that the longer she was there the worse she became. He reported she can do PT on an out-patient basis. Called Nuno's step-mom, Lorena (ph# [phone]) to apprise her of the situation and inquire if Nuno can live with them. She reported that after Nuno's fall they gave up her apartment and moved her belongings into storage. She asked if there was any assisted living that Nuno could move into. She expressed concern about having Nuno live in their home as they have younger children. She was also concerned about being able to assist Nuno in the shower. Explained that she may qualify for home health care. She reported Nuno currently does not have a PCP. Informed her that Nuno may have to stay at the homeless long-term. Called Nuno's assistant case manager, Blaise (ph# [phone]) and apprised him of the situation. He reported he does not know of any board and cares that would accept Nuno in a wheelchair. He reported he will consult with his supervisor shop. FRANCK Matias
[2020-05-29] MEDS: HYDROcodone/acetaminophen 5mg/325mg tablet PO PRN ×2 (12:06→21:10)
--- NOTE | 2020-05-29 17:33 | NUR ---
Nursing Progress Note: Legal hold: 5270 Client on involuntary status for GD/DTS Report received from nurse Indy RN with use of SBAR Why are they here: [facility] she arrived on a stretcher in restraints. She sustained major multiple fractures including spinal fractures, rib fractures, manubrium, sacral, pelvic, and R femur fractures, a pneumothorax and possible right peroneal nerve palsy after attempting suicide by jumping off a freeway overpass in February. After being in the hospital and going to a rehabilitation facility she AMA'd and wheeled herself out into the middle of a road. She is NWB RLE and WBAT LLE, she is supposed to wear a right lower leg splint at night. Pt's Hx includes hypertension, lupus, schizoaffective disorder, and autism. Assessment: What has happened this shift: Received pt sleeping in bed at shift change. Patient refused her breakfast, but was medication compliant. Patient was able to transfer into wheelchair and attend snacks and lunch in the group room. Patient does not socialize with peers or staff, isolates and is guarded. Patient has discharge on her mind, and requests to speak with Karime LUIS regarding placement. S/I, H/I: Pt denies A/VH: Pt denies Sleep: Naps on and off throughout the day ADL's: Pt. is on bed alarm for fall precautions and uses a FWW and W/C. Group attendance: No Were Meds taken: Yes Any med S/E: None noted or reported Mental Status Exam Appearance: Clean and neat in personal attire, hair disheveled. Eye contact: Good Behavior: Pleasant, cooperative Speech: clear, audible, normal rate and rhythm. Mood: depressed due to her inability to get placed. Affect: Flat Thought process: Linear Thought Content: She is depressed because she is tired of being an inpatient and because of her limited mobility. Cognition: A/O X 3 some reality distortion as to situation. Insight: Poor Judgment: Poor Interventions PRN's used: Tramadol 50 mg X 2, [place] 5/325 mg, nicotine lozenges Therapeutic interventions: RN provided active listening, pain management, medication administration/education/monitoring, encourage pt to get up in w/c and come to the dining room for meals, encouragement of personal hygiene, provided encouragement and positive reinforcement, Q 15 minute safety checks. Restraints/seclusion/emergency medication: N/A Justification of Continued Inpatient Treatment: Pt requires pain management and encouragement to get up and move around, she seems to be at her baseline for mental health. Awaiting for an acceptance/transfer back to her county/rehab hospital.
[2020-05-29 19:19] VITALS: BP 111/60
[2020-05-29] MEDS: OLANZAPINE 5 MG TABLET PO SCH (20:55)
[2020-05-29] MEDS: polyethylene glycol 3350 17gm powd pack PO SCH ×2 (20:56→21:00)
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
[2020-05-30] MEDS: tizanidine 4mg tablet PO PRN (03:14)
[2020-05-30] MEDS: traMADol 50MG tablet PO PRN ×3 (03:14→20:51)
[2020-05-30] MEDS: NICOTINE POLACRILEX 2 MG LOZENGE BC PRN ×5 (03:14→20:41)
[2020-05-30 08:00] VITALS: BP 115/61
[2020-05-30] MEDS: methylnaltrexone br 12mg/0.6ml inj***SubQ only SQ SCH (08:00)
[2020-05-30] MEDS: aspirin 325mg tablet PO SCH (08:35)
[2020-05-30] MEDS: lactobacillus rhamnosus 10,000 MMU CELLS/CAPSULE PO SCH (08:36)
[2020-05-30] MEDS: docusate sod 100mg capsule PO SCH ×2 (08:36→20:41)
[2020-05-30] MEDS: lithium carbonate 150mg capsule PO SCH ×3 (08:37→20:40)
[2020-05-30] MEDS: gabapentin 400mg capsule PO SCH ×4 (08:39→20:40)
[2020-05-30] MEDS: HYDROcodone/acetaminophen 5mg/325mg tablet PO PRN (08:39)
[2020-05-30] MEDS: LIDOcaine 5% patch TP SCH (08:41)
[2020-05-30] MEDS: nystatin 15 GM powder TP SCH ×2 (08:45→20:41)
--- NOTE | 2020-05-30 09:12 | NUR ---
DISCHARGE PLANNING Nuno's step-mom, Lorena, called to report that she and Nuno's dad have agreed to allow Nuno to stay with them. She was concerned that they do not have a bed for Nuno and requested a hospital bed and a wheelchair. Technical Services Rep will work on getting Nuno a wheelchair and inquire if a hospital bed is a possibility. Informed her program writer will refer Nuno to home health care. Informed her that Nuno will have to be followed by a primary care provider. She reported Nuno currently does not have one. Scheduled Nuno an appt with [facility] in [place] to establish primary care. Blaise, case filler ([phone]# [phone]), reported [facility] team can assist Nuno and her family with setting up a med box. He requested the meds get sent to [facility] and med list get faxed to [phone] so they can set up a med box. Left message with [facility] to schedule follow up with psychiatry. They are closed today due to [place]. Technical Services Rep will complete Home Health application and request for medical devices. FRANCK Matias
[2020-05-30] MEDS ORDERED: BUPR100T5 PO (16:15)
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
[2020-05-30 19:22] VITALS: BP 125/60
[2020-05-30] MEDS: OLANZAPINE 5 MG TABLET PO SCH (20:40)
[2020-05-30] MEDS: guanFACINE 1 mg tablet PO SCH (20:41)
[2020-05-30] MEDS: polyethylene glycol 3350 17gm powd pack PO SCH (20:47)
[2020-05-30] MEDS: ondansetron 4mg rapidly disintigrating tab PO PRN (20:50)
[2020-05-30] MEDS: LORazepam 1 MG tablet PO PRN (20:50)
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
[2020-05-31] MEDS: traZODone 50mg tablet PO PRN ×2 (00:18→20:26)
[2020-05-31] MEDS: HYDROcodone/acetaminophen 5mg/325mg tablet PO PRN (00:18)
[2020-05-31] MEDS: NICOTINE POLACRILEX 2 MG LOZENGE BC PRN ×5 (00:18→20:25)
[2020-05-31 07:38] VITALS: BP 111/67
[2020-05-31] MEDS: nystatin 15 GM powder TP SCH ×2 (08:00→20:30)
[2020-05-31] MEDS: LIDOcaine 5% patch TP SCH (08:00)
[2020-05-31] MEDS: lactobacillus rhamnosus 10,000 MMU CELLS/CAPSULE PO SCH (08:12)
[2020-05-31] MEDS: docusate sod 100mg capsule PO SCH ×2 (08:12→20:26)
[2020-05-31] MEDS: gabapentin 400mg capsule PO SCH ×4 (08:12→20:26)
[2020-05-31] MEDS: lithium carbonate 150mg capsule PO SCH ×3 (08:12→20:29)
[2020-05-31] MEDS: aspirin 325mg tablet PO SCH (09:14)
--- NOTE | 2020-05-31 13:06 | NUR ---
DISCHARGE PLANNING Nuno's step-mom, Lorena, called and stated Nuno cannot stay with them. She reported they cannot accommodate a wheelchair in their house. Informed her Nuno should be able to bear weight as of 06/01/20. She had her friend, Whitney, call account underwriter (Nuno gave verbal consent for account underwriter to speak with her). Whitney inquired about placement in a SNF, etc. Explained what Nuno would and would not qualify for regarding placement. Informed her that Nuno is connected with [facility] and account underwriter is working with her director of casework department, Blaise, on placement. Spoke to Nuno about the possibility of staying in a hotel while she finds more permanent housing. She reported she is willing to do so. She called Lorena and found out that she has about $700 and can pay for a hotel. Spoke to Blaise, director of casework department (ph# [phone]), who reported he is looking into finding a board and care or room and board in [place]. Plan: and Blaise will touch base tomorrow regarding discharge options. FRANCK Matias
[2020-05-31] MEDS: HYDROcodone/acetaminophen 10/325mg tab PO PRN ×2 (13:38→20:26)
[2020-05-31 19:00] VITALS: BP 146/79
[2020-05-31] MEDS: LORazepam 1 MG tablet PO PRN (20:25)
[2020-05-31] MEDS: guanFACINE 1 mg tablet PO SCH (20:25)
[2020-05-31] MEDS: ondansetron 4mg rapidly disintigrating tab PO PRN (20:26)
[2020-05-31] MEDS: OLANZAPINE 5 MG TABLET PO SCH (20:26)
[2020-05-31] MEDS: polyethylene glycol 3350 17gm powd pack PO SCH (20:27)
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
[2020-06-01] MEDS: LIDOcaine 5% patch TP SCH (07:33)
[2020-06-01] MEDS: NICOTINE POLACRILEX 2 MG LOZENGE BC PRN ×7 (07:33→23:14)
[2020-06-01] MEDS: HYDROcodone/acetaminophen 10/325mg tab PO PRN ×4 (07:34→23:48)
[2020-06-01] MEDS: lithium carbonate 150mg capsule PO SCH ×3 (07:34→20:16)
[2020-06-01] MEDS: lactobacillus rhamnosus 10,000 MMU CELLS/CAPSULE PO SCH (07:35)
[2020-06-01] MEDS: docusate sod 100mg capsule PO SCH ×2 (07:35→20:16)
[2020-06-01] MEDS: gabapentin 400mg capsule PO SCH ×4 (07:35→20:16)
[2020-06-01] MEDS: aspirin 325mg tablet PO SCH (07:47)
[2020-06-01] MEDS: nystatin 15 GM powder TP SCH ×2 (07:48→20:25)
[2020-06-01] MEDS: methylnaltrexone br 12mg/0.6ml inj***SubQ only SQ SCH (07:48)
[2020-06-01 08:00] VITALS: BP 148/79
[2020-06-01] MEDS: ibuprofen 200mg tablet PO PRN ×2 (10:33→15:32)
--- NOTE | 2020-06-01 15:09 | NUR ---
DISCHARGE PLANNING Nuno has been accepted at [facility] and [facility] in [place] (ph# [phone]). Batch Plant Operator is coordinating with [facility] regarding discharge and transfer to [facility] and follow up with appts. Met with Shaye, PT, regarding what devices Nuno will need upon discharge. Shaye reported she will document what is needed. Batch Plant Operator will work on getting medical devices ordered once PT makes recommendation. Blaise, caser up, reported he will assist Nuno with her medications and a pill box. He requested her medications get send to [facility] at this time. Informed Lorena step-mom, of placement. FRANCK Matias
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
[2020-06-01 19:00] VITALS: BP 144/79
[2020-06-01] MEDS: traZODone 50mg tablet PO PRN ×2 (20:16→23:49)
[2020-06-01] MEDS: tizanidine 4mg tablet PO PRN (20:16)
[2020-06-01] MEDS: LORazepam 1 MG tablet PO PRN ×2 (20:16→23:49)
[2020-06-01] MEDS: OLANZAPINE 5 MG TABLET PO SCH (20:16)
[2020-06-01] MEDS: polyethylene glycol 3350 17gm powd pack PO SCH (20:17)
[2020-06-01] MEDS: ondansetron 4mg rapidly disintigrating tab PO PRN (23:50)
[2020-06-02] MEDS: ibuprofen 200mg tablet PO PRN ×2 (04:52→13:37)
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
[2020-06-02] MEDS: NICOTINE POLACRILEX 2 MG LOZENGE BC PRN ×5 (07:09→22:51)
[2020-06-02] MEDS: LORazepam 1 MG tablet PO PRN ×2 (07:09→17:38)
[2020-06-02] MEDS: ondansetron 4mg rapidly disintigrating tab PO PRN ×2 (07:09→21:15)
[2020-06-02 08:00] VITALS: BP 133/67
[2020-06-02] MEDS: LIDOcaine 5% patch TP SCH (08:00)
[2020-06-02] MEDS: docusate sod 100mg capsule PO SCH ×2 (08:57→19:50)
[2020-06-02] MEDS: HYDROcodone/acetaminophen 10/325mg tab PO PRN ×2 (08:57→19:28)
[2020-06-02] MEDS: gabapentin 400mg capsule PO SCH ×4 (08:57→19:49)
[2020-06-02] MEDS: lactobacillus rhamnosus 10,000 MMU CELLS/CAPSULE PO SCH (08:58)
[2020-06-02] MEDS: aspirin 325mg tablet PO SCH (08:58)
[2020-06-02] MEDS: lithium carbonate 150mg capsule PO SCH ×3 (08:58→19:49)
[2020-06-02] MEDS: nystatin 15 GM powder TP SCH ×2 (08:59→19:50)
[2020-06-02] MEDS: tizanidine 4mg tablet PO PRN ×2 (13:37→19:30)
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
[2020-06-02 19:00] VITALS: BP 129/68
[2020-06-02] MEDS: OLANZAPINE 5 MG TABLET PO SCH (19:49)
[2020-06-02] MEDS: polyethylene glycol 3350 17gm powd pack PO SCH (19:50)
[2020-06-02] MEDS: traZODone 50mg tablet PO PRN ×2 (21:15→22:51)
[2020-06-03] MEDS: ibuprofen 200mg tablet PO PRN ×4 (01:10→20:27)
[2020-06-03] MEDS: LORazepam 1 MG tablet PO PRN ×3 (01:10→16:54)
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
[2020-06-03] MEDS: HYDROcodone/acetaminophen 10/325mg tab PO PRN ×4 (03:34→21:13)
[2020-06-03 07:21] VITALS: BP 108/74
[2020-06-03] MEDS: docusate sod 100mg capsule PO SCH ×2 (07:28→20:26)
[2020-06-03] MEDS: lithium carbonate 150mg capsule PO SCH ×3 (07:28→20:26)
[2020-06-03] MEDS: lactobacillus rhamnosus 10,000 MMU CELLS/CAPSULE PO SCH (07:28)
[2020-06-03] MEDS: gabapentin 400mg capsule PO SCH ×4 (07:28→20:26)
[2020-06-03] MEDS: NICOTINE POLACRILEX 2 MG LOZENGE BC PRN ×6 (07:29→21:12)
[2020-06-03] MEDS: LIDOcaine 5% patch TP SCH (07:30)
[2020-06-03] MEDS: nystatin 15 GM powder TP SCH ×2 (07:30→20:27)
[2020-06-03] MEDS: methylnaltrexone br 12mg/0.6ml inj***SubQ only SQ SCH (07:31)
[2020-06-03] MEDS: aspirin 325mg tablet PO SCH (07:31)
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
[2020-06-03 19:04] VITALS: BP 142/76
[2020-06-03] MEDS: traZODone 50mg tablet PO PRN ×2 (20:26→21:12)
[2020-06-03] MEDS: polyethylene glycol 3350 17gm powd pack PO SCH (20:26)
[2020-06-03] MEDS: OLANZAPINE 5 MG TABLET PO SCH (20:26)
[2020-06-03] MEDS: tizanidine 4mg tablet PO PRN (20:26)
[2020-06-04] MEDS: HYDROcodone/acetaminophen 10/325mg tab PO PRN ×4 (02:59→17:13)
[2020-06-04] MEDS: LORazepam 1 MG tablet PO PRN ×4 (03:00→23:51)
[2020-06-04] MEDS: NICOTINE POLACRILEX 2 MG LOZENGE BC PRN ×8 (03:00→23:51)
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
[2020-06-04 07:00] VITALS: BP 119/61
[2020-06-04] MEDS: lactobacillus rhamnosus 10,000 MMU CELLS/CAPSULE PO SCH (07:45)
[2020-06-04] MEDS: docusate sod 100mg capsule PO SCH ×2 (07:47→20:18)
[2020-06-04] MEDS: aspirin 325mg tablet PO SCH (07:48)
[2020-06-04] MEDS: lithium carbonate 150mg capsule PO SCH ×3 (07:48→20:21)
[2020-06-04] MEDS: gabapentin 400mg capsule PO SCH ×4 (07:49→20:19)
[2020-06-04] MEDS: nystatin 15 GM powder TP SCH ×2 (08:00→20:30)
[2020-06-04] MEDS: LIDOcaine 5% patch TP SCH (08:00)
[2020-06-04] MEDS: ibuprofen 200mg tablet PO PRN ×2 (11:48→20:19)
[2020-06-04] MEDS: tizanidine 4mg tablet PO PRN ×2 (11:48→20:19)
--- NOTE | 2020-06-04 12:04 | NUR ---
Discharge Planning Faxed order for walker to [facility] (ph# [phone], fax# [phone]). Scheduled Nuno's follow up psychiatry appt with [facility]. She will be going to a [facility] in [place] and would like her meds sent to [facility] (30 day supply). FRANCK Matias
--- NOTE | 2020-06-04 13:30 | NUR ---
Home Health Referral Contacted [facility] and spoke to Gina (ph# [phone]). She asked insurance underwriter sales to call and inform them of the day Nuno gets discharged. She reported they can work with her. Faxed the referral (fax# [phone]). FRANCK Matias
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
[2020-06-04] MEDS: OLANZAPINE 5 MG TABLET PO SCH (20:18)
[2020-06-04] MEDS: polyethylene glycol 3350 17gm powd pack PO SCH (20:18)
[2020-06-04] MEDS: traZODone 50mg tablet PO PRN ×2 (20:19→23:51)
[2020-06-04 20:50] VITALS: BP 141/79
[2020-06-05] MEDS: HYDROcodone/acetaminophen 10/325mg tab PO PRN ×4 (02:46→17:21)
[2020-06-05] MEDS: ondansetron 4mg rapidly disintigrating tab PO PRN (02:50)
[2020-06-05] MEDS: NICOTINE POLACRILEX 2 MG LOZENGE BC PRN ×6 (02:50→20:14)
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
[2020-06-05 07:00] VITALS: BP 151/87
[2020-06-05] MEDS: methylnaltrexone br 12mg/0.6ml inj***SubQ only SQ SCH (08:00)
[2020-06-05] MEDS: lactobacillus rhamnosus 10,000 MMU CELLS/CAPSULE PO SCH (08:21)
[2020-06-05] MEDS: lithium carbonate 150mg capsule PO SCH ×3 (08:21→20:07)
[2020-06-05] MEDS: docusate sod 100mg capsule PO SCH ×2 (08:21→20:06)
[2020-06-05] MEDS: LORazepam 1 MG tablet PO PRN ×2 (08:21→17:22)
[2020-06-05] MEDS: aspirin 325mg tablet PO SCH (08:21)
[2020-06-05] MEDS: gabapentin 400mg capsule PO SCH ×4 (08:22→20:06)
[2020-06-05] MEDS: ibuprofen 200mg tablet PO PRN ×2 (08:22→20:06)
[2020-06-05] MEDS: LIDOcaine 5% patch TP SCH (08:29)
[2020-06-05] MEDS: nystatin 15 GM powder TP SCH ×2 (08:29→20:15)
[2020-06-05 09:31] VITALS: BP 151/87
--- NOTE | 2020-06-05 11:25 | NUR ---
Reassessment: Pt continues with average 75-100% PO intake on regular diet meeting estimated nutrient needs. LBM 06/04, receiving routine bowel care and power pudding TID per diet order. No nutrition intervention warranted at this time. Will continue to follow. Rec: 1. continue regular diet 2. routine bowel care; Power pudding TID per diet order 3. scaled wt per rx Addendum: 06/05/20 at [address] Amended: Links added.
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
[2020-06-05] MEDS: polyethylene glycol 3350 17gm powd pack PO SCH (20:07)
[2020-06-05] MEDS: tizanidine 4mg tablet PO PRN (20:07)
[2020-06-05] MEDS: traZODone 50mg tablet PO PRN (20:07)
[2020-06-05] MEDS: OLANZAPINE 5 MG TABLET PO SCH (20:07)
[2020-06-05 20:55] VITALS: BP 122/63
[2020-06-06] MEDS: NICOTINE POLACRILEX 2 MG LOZENGE BC PRN ×3 (01:19→11:54)
[2020-06-06] MEDS: LORazepam 1 MG tablet PO PRN ×2 (01:19→07:47)
[2020-06-06] MEDS: HYDROcodone/acetaminophen 10/325mg tab PO PRN ×2 (01:19→08:04)
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
[2020-06-06] MEDS ORDERED: [UNRECOGNIZED DRUG - CODE] PO (07:07)
[2020-06-06] MEDS ORDERED: LITH150C8 PO (07:07)
[2020-06-06] MEDS ORDERED: LIDO700A47 TP (07:07)
[2020-06-06] MEDS ORDERED: TRAZ-251 PO (07:07)
[2020-06-06] MEDS ORDERED: OLAN15TA17 PO (07:07)
[2020-06-06] MEDS ORDERED: NICO-668 BC (07:07)
[2020-06-06] MEDS ORDERED: TIZA4TAB5 PO (07:07)
[2020-06-06] MEDS ORDERED: ASPI-10 PO (07:07)
[2020-06-06] MEDS ORDERED: DOCU100C40 PO (07:07)
[2020-06-06] MEDS ORDERED: GABA800T11 PO (07:07)
[2020-06-06] MEDS ORDERED: TRAM50TA2 PO (07:07)
[2020-06-06] MEDS: gabapentin 400mg capsule PO SCH ×2 (07:46→12:45)
[2020-06-06] MEDS: aspirin 325mg tablet PO SCH (07:46)
[2020-06-06] MEDS: lactobacillus rhamnosus 10,000 MMU CELLS/CAPSULE PO SCH (07:46)
[2020-06-06] MEDS: docusate sod 100mg capsule PO SCH (07:46)
[2020-06-06] MEDS: lithium carbonate 150mg capsule PO SCH ×2 (07:47→12:45)
[2020-06-06] MEDS: LIDOcaine 5% patch TP SCH (07:48)
[2020-06-06] MEDS: nystatin 15 GM powder TP SCH (07:48)
[2020-06-06 08:09] VITALS: BP 135/87
[2020-06-06] MEDS ORDERED: clindamycin 150mg capsule PO ONE (11:05)
[2020-06-06] MEDS ORDERED: CLE150C PO (12:10)
[2020-06-06] MEDS ORDERED: clindamycin 150mg capsule PO SCH (14:00)
--- NOTE | 2020-06-06 15:03 | NUR ---
DISCHARGE NOTE Patient discharged at 1327 from unit. Pt was escorted to lobby with NAVA Valero with all her personal belongings. MRSA swab and discharge pictures were obtained and placed in chart. Pt's was picked by dedicated regional driver from [facility] in [place]. Pt was [facility]. Pt' left with her discharge folder and reviewed paperwork. Pt states "when I am done there I want to get my own place."
== END 2020-06-06 13:27 | disposition short-term general hospital (02) | DRG 885 ==
LOC: ADULT MH 23:22
PROVIDERS: ADMIT Psychiatry & Neurology Psychiatry; ATTEND Psychiatry & Neurology Psychiatry
DX: F25.0 Schizoaffective disorder, bipolar type (principal); F32.9 Major depressive disorder, single episode, unspecified; I10 Essential (primary) hypertension; E66.01 Morbid (severe) obesity due to excess calories; M21.371 Foot drop, right foot; F84.0 Autistic disorder; K04.7 Periapical abscess without sinus; M25.559 Pain in unspecified hip; R11.0 Nausea; Z20.828 Contact with and (suspected) exposure to other viral communicable diseases; F41.9 Anxiety disorder, unspecified; M79.604 Pain in right leg; K59.00 Constipation, unspecified; Z87.891 Personal history of nicotine dependence; Z59.0 Homelessness; Z68.32 Body mass index [BMI] 32.0-32.9, adult; S32.9XXS Fracture of unspecified parts of lumbosacral spine and pelvis, sequela; S72.301S Unspecified fracture of shaft of right femur, sequela; S22.009S Unspecified fracture of unspecified thoracic vertebra, sequela
CPT/HCPCS: 36415; 72074; 72100; 72170; 73552; 74018; 80048; 80061; 80178; 83036; 87081; 97110; 97161; 97164; 97530; J2212